=== PATIENT | female | born 1935 | race Two or more races ===

== ENCOUNTER 2018-06-25 19:00 | Inpatient (IN) | payer MEDICARE ==
[~2018-06-25] VITALS: Ht 177.8 cm; Wt 72.6 kg
[~2018-06-25 19:00] MED LIST: ASPI-482 PO; ATOR10TA PO; CITA20TA9 PO; CLOP75TA PO; GABA300C18 PO; LIPITOR80 MG PO; LUBI8CAP4 PO; METO10TA81 PO; METO25TA4 PO; OMEG1CAP2 PO; Vancomycin Hcl PO
[2018-06-25] MEDS ORDERED: LIDOCAINE 1%/EPI 1:100,000 20 ML VIAL. INJ ONE (19:15)
[2018-06-25] MEDS ORDERED: fentaNYL PF VIAL 100 MCG/2 ML VIAL IV ONE (19:15)
--- NOTE | 2018-06-25 19:36 | PHYS DOC ---
Past Medical History Past Medical History: CVA, Depression, GERD, High Cholesterol, NV, Renal Disease, UTI Additional Past Medical Histor: orthostatic hypotension, tardive dyskinesia Past Surgical History: Hysterectomy, Pacemaker Additional Past Surgical Histo: 2 STENT PLACEMENTS Alcohol Use: None Drug Use: None Adult General Chief Complaint Chief Complaint: MECHANICAL FALL HPI HPI 83-year-old female presents to ER via EMS from her family's residence following a fall. She reports she has no recollection as to cause of her fall. EMS reported patient fell down [address]. On arrival patient has bleeding from posterior head and obvious deformity left mid shaft upper arm. Prior to arrival patient EMS administered fentanyl 100 mcg IV. She reports she continues to have same pain with minimal relief. Patient was placed in c-collar by EMS. Patient's only complaint on arrival is left arm pain. Patient is on a daily blood thinner but is uncertain as to her medications. Review of Systems Review of Systems Constitutional: Reports uncertain if she had LOC Eyes: Denies change in visual acuity or eye pain [] HENT: Denies nosebleed/facial pain Respiratory: Denies shortness of breath [] Cardiovascular: Denies CP GI: Denies incontinence Musculoskeletal: Denies back/neck pain. Reports lt upper/mid arm pain Integument: Denies rash or skin lesions [] Neurologic: Denies headache, focal weakness or sensory changes. Denies dizziness All other systems were reviewed and found to be within normal limits, except as documented in this note. Current Medications Current Medications Current Medications Medications (Trade) Dose Ordered Sig/Servando Start Time Stop Time Status Last Admin Dose Admin Fentanyl Citrate (Fentanyl 2ml Vial) 50 mcg 1X ONCE 06/25/18 19:15 06/25/18 19:16 DC 06/25/18 19:29 50 MCG Lidocaine/ Epinephrine (LIDOCAINE 1%-EPI 1:100,000 Multi-Dose) 20 ml 1X ONCE 06/25/18 19:15 06/25/18 19:16 DC 06/25/18 20:00 20 ML Morphine Sulfate (Morphine Sulfate) 4 mg STK-MED ONCE 06/25/18 20:33 06/25/18 20:36 DC Allergies Allergies Allergies Coded Allergies Type Severity Reaction Last Updated Verified povidone-iodine Allergy Intermediate 02/09/14 Yes metoclopramide Adverse Reaction Severe 02/09/14 Yes Physical Exam Physical Exam Constitutional: Well developed, well nourished, no acute distress, non-toxic appearance. Clear speech HENT: Normocephalic, bleeding posterior head, bilateral ears normal- no blood/ drainage bilat., oropharynx moist- no oral injury, nose normal. [] Eyes: 3mm PERRLA, EOMI- no pain with eye movements, no nystagmus, conjunctiva normal, no discharge. [] Neck: Normal range of motion, CCollar on at time of arrival to ER placed by EMS - w/CSpine precautions cervical/neck exam complete- trachea midline- no crepitus or palp. deformity midline cspine. Pt denies tenderness on palp. of neck/Cspine. Supple, no stridor. With pt having posterior head injury and lt arm injury CCollar left on until CT obtained[] Cardiovascular: Heart rate regular rhythm, no murmur [] Lungs & Thorax: Bilateral breath sounds clear to auscultation. Resp. equal/ nonlabored. No chest wall tenderness/injury/deformity. Lt subclav. pacemaker Abdomen: Bowel sounds normal, soft- no distention/rigidity, no tenderness, no masses Skin: Warm, dry Back: With CSpine precautions maintained and 4 person assist- no visible injury - no midline spinal tenderness/palp. deformity. No CVA tenderness. [] Extremities: Pelvis stable/nontender. Full ROM of bilat. LEs without tenderness on palp. 2+ dorsalis pedis/posterior tibial bilat. Lt shoulder nontender with no palp deformity- tender on palp. of mid shaft upper lt arm with obvious deformity- no open wounds- lt posterior elbow tenderness on palp. w/ecchymosis and abrasion- decreased ROM of lt shoulder/elbow w/pt reporting increased pain with movements. Lt wrist/hand nontender with full ROM. Cap refill brisk. 2+ radial bilat. No cyanosis, no clubbing, ROM intact, no edema. [] Neurologic: Alert and oriented X 3, normal motor function, normal sensory function, no focal deficits noted. [] Psychologic: Affect normal, judgement normal, mood normal. [] Current Patient Data Vital Signs Vital Signs Date Time Temp Pulse Resp B/P (MAP) Pulse Ox O2 Delivery O2 Flow Rate FiO2 06/25/18 21:30 86 28 100 06/25/18 20:38 Nasal Cannula 2.0 06/25/18 19:16 98.3 185/95 (125) 98.3 Lab Values Laboratory Tests Test 06/25/18 20:15 White Blood Count 10.0 x10^3/uL (4.0-11.0) Red Blood Count 3.98 x10^6/uL (3.50-5.40) Hemoglobin 12.4 g/dL (12.0-15.5) Hematocrit 37.5 % (36.0-47.0) Mean Corpuscular Volume 94 fL (79-100) Mean Corpuscular Hemoglobin 31 pg (25-35) Mean Corpuscular Hemoglobin Concent 33 g/dL (31-37) Red Cell Distribution Width 13.1 % (11.5-14.5) Platelet Count 204 x10^3/uL (140-400) Neutrophils (%) (Auto) 64 % (31-73) Lymphocytes (%) (Auto) 26 % (24-48) Monocytes (%) (Auto) 8 % (0-9) Eosinophils (%) (Auto) 1 % (0-3) Basophils (%) (Auto) 1 % (0-3) Neutrophils # (Auto) 6.5 x10^3uL (1.8-7.7) Lymphocytes # (Auto) 2.6 x10^3/uL (1.0-4.8) Monocytes # (Auto) 0.8 x10^3/uL (0.0-1.1) Eosinophils # (Auto) 0.1 x10^3/uL (0.0-0.7) Basophils # (Auto) 0.1 x10^3/uL (0.0-0.2) Prothrombin Time 13.4 SEC (11.7-14.0) Prothrombin Time INR 1.1 (0.8-1.1) PTT 25 SEC (24-38) Sodium Level 140 mmol/L (136-145) Potassium Level 4.0 mmol/L (3.5-5.1) Chloride Level 103 mmol/L (98-107) Carbon Dioxide Level 25 mmol/L (21-32) Anion Gap 12 (6-14) Blood Urea Nitrogen 29 mg/dL (7-20) H Creatinine 1.2 mg/dL (0.6-1.0) H Estimated GFR (Cockcroft-Gault) 42.7 BUN/Creatinine Ratio 24 (6-20) H Glucose Level 183 mg/dL (70-99) H Calcium Level 9.0 mg/dL (8.5-10.1) Total Bilirubin 0.5 mg/dL (0.2-1.0) Aspartate Amino Transferase (AST) 22 U/L (15-37) Alanine Aminotransferase (ALT) 18 U/L (14-59) Alkaline Phosphatase 141 U/L (46-116) H Troponin I Quantitative < 0.017 ng/mL (0.000-0.055) Total Protein 7.3 g/dL (6.4-8.2) Albumin 3.0 g/dL (3.4-5.0) L Albumin/Globulin Ratio 0.7 (1.0-1.7) L Laboratory Tests 06/25/18 20:15 Laboratory Tests 06/25/18 20:15 EKG EKG EKG obtained 06/25/18 at [address] Rockwell Sinus rhythm Ltward axis Rate 77 No STEMI Radiology/Procedures Radiology/Procedures Laceration Repair by il: 230 Anesthesia: 1% lidocaine w/ epi locally Location: Posterior mid scalp Foreign body: None detected after copious irrigation and exploration Technique: 6 simran with wound edges well approximated Complexity: No subcutaneous sutures/mucosal repair/edge excision Post Closure Length: 7 cm Patient's bleeding was easily controlled in the department and there is no indication of anemia. No evidence of compartment syndrome, neurologic injury, vascular injury, open joint, tendon laceration, or foreign body. Patient is appropriate for outpatient follow up. 48 hour wound check. Scar minimization instructions given. PROCEDURE: CT HEAD AND CERVICAL SPINE WO CT head without contrast and CT cervical spine without contrast dated 06/25/2018. Comparison made to 05/08/2015. CLINICAL INDICATION: Pain after fall. TECHNIQUE: Contiguous axial imaging the head was performed from skull base to vertex. In addition, axial imaging of the cervical spine acquired with thin cut coronal and sagittal reconstruction. One or more of the following individualized dose reduction techniques were utilized for this examination: 1. Automated exposure control 2. Adjustment of the mA and/or kV according to patient size 3. Use of iterative reconstruction technique FINDINGS: Ventricles and sulci are mildly prominent for age. No midline shift or mass effect. Mild patchy low density in the deep/subcortical periventricular white matter. No hemorrhage or extra-axial collection. Posterior fossa and brainstem unremarkable. There is a focal scalp hematoma posteriorly near the midline. No underlying fracture. Moderate mucosal thickening of the right maxillary sinus. Paranasal sinuses and mastoid air cells are otherwise clear. Images of the cervical spine were acquired from skull base to mid T3. Slight retrolisthesis of C5 on C6. Sagittal alignment is otherwise anatomic. Vertebral body heights are maintained. No prevertebral soft tissue swelling. Posterior elements are intact. Moderate endplate hypertrophic changes throughout with multilevel disc space narrowing and uncovertebral spurring. Mild to moderate multilevel facet arthropathy. There is resultant moderate right foraminal stenosis at C4-C5, C5-C6 and C6-C7. No significant central canal compromise. Milder foraminal narrowing at the remaining levels. Visualized soft tissue structures are unremarkable. Limited images of the lung apices are clear. IMPRESSION HEAD: 1. No evidence of acute intracranial hemorrhage or mass. 2. Mild chronic small vessel ischemic changes and atrophy. 3. Prominent scalp hematoma posteriorly with no underlying fracture. Impression cervical spine: 1. No evidence of fracture or malalignment. 2. Moderate multilevel spondylosis. Electronically signed by: Feliciano Oscar MD (06/25/2018 10:08 PM) [place] [id number] DICTATED and SIGNED BY: FELICIANO OSCAR MD DATE: 06/25/182201 PROCEDURE: HUMERUS LEFT 2 views left humerus and 3 views left elbow dated 06/25/2018. No comparison available. CLINICAL INDICATION: Pain after fall. FINDINGS: 2 views left humerus show a complete fracture at the humeral midshaft with one shaft width lateral displacement. Proximal humeral shaft is intact. 3 views of left elbow show a transverse fracture through the supracondylar left humerus, mildly displaced. There is also a fracture line extending to the articular surface at the intercondylar region with mild impaction and mild anterior displacement of the condylar fragments relative to the humeral shaft. Fat pad elevation suggesting joint effusion. The proximal radius and ulna is grossly intact, although there may be a small avulsion or chip fracture off the olecranon. IMPRESSION: 1. Transverse fracture at the humeral midshaft with one shaft width lateral displacement. 2. Complex T-shaped bicondylar fracture of the distal humerus with mild displacement. 3. Elbow joint effusion. Electronically signed by: Feliciano Oscar MD (06/25/2018 8:23 PM) [place] [id number] DICTATED and SIGNED BY: FELICIANO OSCAR MD DATE: 06/25/182019 PROCEDURE: CHEST AP ONLY Single view chest dated 06/25/2018. Comparison made to 05/08/2015. CLINICAL INDICATION: Pain after fall today. FINDINGS: Single supine portable exam performed. Heart and mediastinal contours are stable. Dual lead left subclavian pacer in place, unchanged. Lungs are somewhat hyperinflated but otherwise clear. No consolidation or pleural effusion. No pneumothorax. Prominent linear bands of increased density at the left base, likely scar or atelectasis, unchanged. IMPRESSION: No acute radiographic abnormality. Stable findings compared to 05/08/2015. Electronically signed by: Feliciano Oscar MD (06/25/2018 8:20 PM) [place] [id number] DICTATED and SIGNED BY: FELICIANO OSCAR MD DATE: 06/25/182018 PROCEDURE: CT THORACIC SPINE WO CONTRAST EXAM: CT thoracic spine CLINICAL HISTORY: FALL COMPARISON: Chest radiograph 07/03/2016. TECHNIQUE: This CT study consists of contiguous axial images performed through the Thoracic spine. Sagittal and coronal reformatted images were also performed. FINDINGS: Mild exaggeration of the normal thoracic kyphosis. Minimal height loss of T9 and T7 possibly physiologic wedging. Approximately 50 percent height loss of the L1 vertebral body is likely unchanged when compared to prior chest radiograph 07/03/2016. Diffusely decreased bone mineral density. Mild multilevel intervertebral disc height loss. Mild rightward curvature of the lumbar spine. No definite high-grade central canal stenosis or neural foraminal narrowing is identified. A 7 mm right upper lobe lung nodule is seen (image 37). Linear opacities in the lung bases likely scarring/atelectasis. In addition a background of interstitial prominence, likely from chronic interstitial disease. Heart is mildly enlarged. Coronary artery calcifications are seen. Ascending aorta measures 3.9 cm at the level of the right pulmonary artery. IMPRESSION: 1. No evidence of acute fracture or subluxation 2. Chronic appearing height loss of the L1 vertebral body. 3. Diffusely decreased bone mineral density. 4. 7 mm right upper lobe lung nodule seen. Electronically signed by: James Coffman MD (06/25/2018 10:06 PM) [facility] DICTATED and SIGNED BY: JAMES COFFMAN MD DATE: 06/25/182157 Course & Med Decision Making Course & Med Decision Making Pertinent Labs and Imaging studies reviewed. (See chart for details) Family arrived and provided additional information on patient and the fall. Patient's daughter states patient typically walks with a walker as she has episodes of dizziness. Patient's daughter states they were downstairs and patient had lost her balance causing her to fall. She adds that patient reached out during the fall falling onto her left side and backwards onto the tile floor. Family denies patient had loss of consciousness, confusion, or change in mental status. Dgtr reports pt to be on Plavix daily. 2004: X-ray left humerus shows obvious displaced fracture along with left elbow fracture. Call placed to Dr. Delatorre, [facility]. 2019: Spoke with Dr. Delatorre, orthopedics via phone and discussed patient's case- will place patient in long arm posterior splint and keep patient nothing by mouth after midnight. Will consult his services with admit orders. 2199: Spoke with Dr. Finney, hospitalist and discussed pt's case and admission plan. 2219: This provider removed CCollar as CSpine CT results neg. for acute findings - degenerative changes reported- head CT neg. for acute findings also. Pt remains A&Ox3 and reports pain in lt arm improved with splint application. She has brisk cap refill in lt fingers- able to move all fingers with good sensation. Discussed test results with pt and her family who remain at bedside. EKG with no acute STEMI/ST elevation and troponin was <0.017- other labs stable with H&H 12.4/37.5. Discussed admit plans all agreeable with plan. [place] Disclaimer Dragon Disclaimer This electronic medical record was generated, in whole or in part, using a voice recognition dictation system. Departure Departure Impression: Primary Impression: Fall Additional Impressions: Head injury Left humeral fracture Left elbow fracture Disposition: ADMITTED INPATIENT Admitting Physician: Jose Finney Condition: STABLE Referrals: TOOTIE SANDY DO (PCP) Problem Qualifiers JENNYFER VALADEZ APRN Jun 25, 2018 19:36
--- NOTE | 2018-06-25 20:24 | RAD ---
Single view chest dated 06/25/2018. Comparison made to 05/08/2015. CLINICAL INDICATION: Pain after fall today. FINDINGS: Single supine portable exam performed. Heart and mediastinal contours are stable. Dual lead left subclavian pacer in place, unchanged. Lungs are somewhat hyperinflated but otherwise clear. No consolidation or pleural effusion. No pneumothorax. Prominent linear bands of increased density at the left base, likely scar or atelectasis, unchanged. IMPRESSION: No acute radiographic abnormality. Stable findings compared to 05/08/2015. Electronically signed by: Feliciano Oscar MD (06/25/2018 8:20 PM) [facility]
[2018-06-25 20:27] LABS: BASO # 0.1 x10^3/uL (0.0-0.2); BASO % 1 % (0-3); EOS # 0.1 x10^3/uL (0.0-0.7); EOS % 1 % (0-3); HEMATOCRIT 37.5 % (36.0-47.0); HEMOGLOBIN 12.4 g/dL (12.0-15.5); LYMPH # 2.6 x10^3/uL (1.0-4.8); LYMPH % 26 % (24-48); MEAN CORPUSCULAR HEMOGLOBIN 31 pg (25-35); MEAN CORPUSCULAR HGB CONC 33 g/dL (31-37); MEAN CORPUSCULAR VOLUME 94 fL (79-100); MONO # 0.8 x10^3/uL (0.0-1.1); MONO % 8 % (0-9); NEUT # 6.5 x10^3uL (1.8-7.7); NEUT % 64 % (31-73); PLATELET COUNT 204 x10^3/uL (140-400); RED BLOOD COUNT 3.98 x10^6/uL (3.50-5.40); RED CELL DISTRIBUTION WIDTH 13.1 % (11.5-14.5)
--- NOTE | 2018-06-25 20:28 | RAD ---
2 views left humerus and 3 views left elbow dated 06/25/2018. No comparison available. CLINICAL INDICATION: Pain after fall. FINDINGS: 2 views left humerus show a complete fracture at the humeral midshaft with one shaft width lateral displacement. Proximal humeral shaft is intact. 3 views of left elbow show a transverse fracture through the supracondylar left humerus, mildly displaced. There is also a fracture line extending to the articular surface at the intercondylar region with mild impaction and mild anterior displacement of the condylar fragments relative to the humeral shaft. Fat pad elevation suggesting joint effusion. The proximal radius and ulna is grossly intact, although there may be a small avulsion or chip fracture off the olecranon. IMPRESSION: 1. Transverse fracture at the humeral midshaft with one shaft width lateral displacement. 2. Complex T-shaped bicondylar fracture of the distal humerus with mild displacement. 3. Elbow joint effusion. Electronically signed by: Feliciano Oscar MD (06/25/2018 8:23 PM) [facility]
[2018-06-25] MEDS ORDERED: MORPHINE SULFATE 4 MG/ML VIAL. ONE (20:33)
[2018-06-25 20:36] LABS: CREATININE 1.2 mg/dL (0.6-1.0); GFR 42.7; PROTHROMBIN TIME PATIENT 13.4 SEC (11.7-14.0)
[2018-06-25 20:44] LABS: ALBUMIN/GLOBULIN RATIO 0.7 (1.0-1.7); TOTAL BILIRUBIN 0.5 mg/dL (0.2-1.0); TOTAL PROTEIN 7.3 g/dL (6.4-8.2)
[2018-06-25] MEDS ORDERED: MORPHINE SULFATE 4 MG/ML VIAL. IV ONE (20:45)
--- NOTE | 2018-06-25 22:11 | RAD ---
EXAM: CT thoracic spine CLINICAL HISTORY: FALL COMPARISON: Chest radiograph 07/03/2016. TECHNIQUE: This CT study consists of contiguous axial images performed through the Thoracic spine. Sagittal and coronal reformatted images were also performed. FINDINGS: Mild exaggeration of the normal thoracic kyphosis. Minimal height loss of T9 and T7 possibly physiologic wedging. Approximately 50 percent height loss of the L1 vertebral body is likely unchanged when compared to prior chest radiograph 07/03/2016. Diffusely decreased bone mineral density. Mild multilevel intervertebral disc height loss. Mild rightward curvature of the lumbar spine. No definite high-grade central canal stenosis or neural foraminal narrowing is identified. A 7 mm right upper lobe lung nodule is seen (image 37). Linear opacities in the lung bases likely scarring/atelectasis. In addition a background of interstitial prominence, likely from chronic interstitial disease. Heart is mildly enlarged. Coronary artery calcifications are seen. Ascending aorta measures 3.9 cm at the level of the right pulmonary artery. IMPRESSION: 1. No evidence of acute fracture or subluxation 2. Chronic appearing height loss of the L1 vertebral body. 3. Diffusely decreased bone mineral density. 4. 7 mm right upper lobe lung nodule seen. Electronically signed by: James Tang MD (06/25/2018 10:06 PM) [facility]
--- NOTE | 2018-06-25 22:13 | RAD ---
CT head without contrast and CT cervical spine without contrast dated 06/25/2018. Comparison made to 05/08/2015. CLINICAL INDICATION: Pain after fall. TECHNIQUE: Contiguous axial imaging the head was performed from skull base to vertex. In addition, axial imaging of the cervical spine acquired with thin cut coronal and sagittal reconstruction. One or more of the following individualized dose reduction techniques were utilized for this examination: 1. Automated exposure control 2. Adjustment of the mA and/or kV according to patient size 3. Use of iterative reconstruction technique FINDINGS: Ventricles and sulci are mildly prominent for age. No midline shift or mass effect. Mild patchy low density in the deep/subcortical periventricular white matter. No hemorrhage or extra-axial collection. Posterior fossa and brainstem unremarkable. There is a focal scalp hematoma posteriorly near the midline. No underlying fracture. Moderate mucosal thickening of the right maxillary sinus. Paranasal sinuses and mastoid air cells are otherwise clear. Images of the cervical spine were acquired from skull base to mid T3. Slight retrolisthesis of C5 on C6. Sagittal alignment is otherwise anatomic. Vertebral body heights are maintained. No prevertebral soft tissue swelling. Posterior elements are intact. Moderate endplate hypertrophic changes throughout with multilevel disc space narrowing and uncovertebral spurring. Mild to moderate multilevel facet arthropathy. There is resultant moderate right foraminal stenosis at C4-C5, C5-C6 and C6-C7. No significant central canal compromise. Milder foraminal narrowing at the remaining levels. Visualized soft tissue structures are unremarkable. Limited images of the lung apices are clear. IMPRESSION HEAD: 1. No evidence of acute intracranial hemorrhage or mass. 2. Mild chronic small vessel ischemic changes and atrophy. 3. Prominent scalp hematoma posteriorly with no underlying fracture. Impression cervical spine: 1. No evidence of fracture or malalignment. 2. Moderate multilevel spondylosis. Electronically signed by: Feliciano Oscar MD (06/25/2018 10:08 PM) [facility]
[2018-06-25] MEDS ORDERED: MORPHINE SULFATE 4 MG/ML VIAL. IV PRN (23:45)
[2018-06-25] MEDS ORDERED: ONDANSETRON PF 4 MG/2 ML VIAL. IV PRN (23:45)
[2018-06-26 00:15] VITALS: BP 105/57
[2018-06-26] MEDS: IV NORMAL SALINE 1000ML BAG 1,000 ML IV SCH ×2 (00:55→09:44)
[2018-06-26] MEDS ORDERED: C.DIFF MED SCREEN BY RX. MC ONE (01:00)
[2018-06-26] MEDS ORDERED: DIPHTH,PERTUSS(ACELL),TET TOX 0.5 ML DISP.SYRIN. VAX IM ONE (01:00)
[2018-06-26 03:00] VITALS: BP 101/67
[2018-06-26 06:26] LABS: BASO % 0 % (0-3); EOS % 0 % (0-3); HEMATOCRIT 36.4 % (36.0-47.0); HEMOGLOBIN 11.9 g/dL (12.0-15.5); LYMPH # 1.5 x10^3/uL (1.0-4.8); LYMPH % 18 % (24-48); MEAN CORPUSCULAR HEMOGLOBIN 31 pg (25-35); MEAN CORPUSCULAR HGB CONC 33 g/dL (31-37); MEAN CORPUSCULAR VOLUME 95 fL (79-100); MONO # 0.9 x10^3/uL (0.0-1.1); MONO % 11 % (0-9); NEUT # 5.9 x10^3uL (1.8-7.7); NEUT % 72 % (31-73); PLATELET COUNT 177 x10^3/uL (140-400); RED BLOOD COUNT 3.82 x10^6/uL (3.50-5.40); RED CELL DISTRIBUTION WIDTH 13.2 % (11.5-14.5); WHITE BLOOD COUNT 8.3 x10^3/uL (4.0-11.0)
[2018-06-26 06:32] LABS: CALCIUM 8.9 mg/dL (8.5-10.1); CREATININE 1.6 mg/dL (0.6-1.0); GFR 30.6; POTASSIUM 5.1 mmol/L (3.5-5.1)
--- NOTE | 2018-06-26 07:46 | EKG ---
[facility] [address] [place] [address] Test Date: 2018-06-25 Test Time: 19:21:01 Pat Name: RAYMUNDO SEXTON Department: Room: [facility] Gender: F Recording Engineer: : [id number] Requested By: JENNYFER VALADEZ Order Number: [id number] Reading MD: Saurabh Barton Measurements Intervals [place] Rate: 76 P: -90 [place]: 184 QRS: -26 QRSD: 78 T: 34 QT: 408 QTc: 463 Interpretive Statements A PACED NONSPECIFIC ST-T WAVE CHANGES. Electronically Signed On 06-27-2018 10:06:27 SCRAPPER by Saurabh Barton
[2018-06-26 07:56] VITALS: BP 107/52
--- NOTE | 2018-06-26 09:57 | PDOC1 ---
History and Physical Date of Admission Date of Admission DATE: 06/26/18 TIME: 09:55 Identification/Chief Complaint Chief Complaint ER via EMS from her family's residence following a fall. She reports she has no recollection as to cause of her fall. EMS reported patient fell down [address]. On ER arrival patient has bleeding from posterior head and obvious deformity left mid shaft upper arm. Prior to arrival patient was administered fentanyl 100 mcg IV. She reports she continues to have same pain with SOME relief. Patient was placed in c-collar by EMS. Patient's only complaint on arrival is left arm pain, , patient states her family told her not to try to go to her basement fx is complex planning transfer to [facility] Past Medical History Past Medical History Past Medical History Past Medical History: CVA, Depression, GERD, High Cholesterol, CT, Renal Disease, UTI Additional Past Medical Histor: orthostatic hypotension, tardive dyskinesia Past Surgical History: Hysterectomy, Pacemaker Additional Past Surgical Histo: 2 STENT PLACEMENTS Alcohol Use: None Drug Use: None family hx Hyperlipidemia Cardiovascular: CAD, HTN Psych: Anxiety, Depression Renal/: Chronic renal failure Family History Family History: Other Social History Smoke: No ALCOHOL: none Drugs: None, Other Current Problem List Problem List Problems Medical Problems: (1) Left elbow fracture Status: Acute (2) Left humeral fracture Status: Acute Current Medications Current Medications Current Medications Fentanyl Citrate (Fentanyl 2ml Vial) 50 mcg 1X ONCE IV Last administered on 06/25/18at 19:29; Start 06/25/18 at 19:15; Stop 06/25/18 at 19:16; Status DC Lidocaine/ Epinephrine (LIDOCAINE 1%-EPI 1:100,000 Multi-Dose) 20 ml 1X ONCE INJ Last administered on 06/25/18at 20:00; Start 06/25/18 at 19:15; Stop 06/25/18 at 19:16; Status DC Morphine Sulfate (Morphine Sulfate) 4 mg 1X ONCE IV Last administered on at 20:38; Start 06/25/18 at 20:45; Stop 06/25/18 at 20:46; Status DC Morphine Sulfate (Morphine Sulfate) 4 mg STK-MED ONCE .ROUTE ; Start 06/25/18 at 20:33; Stop 06/25/18 at 20:36; Status DC Ondansetron HCl (Zofran) 4 mg PRN Q8HRS PRN IV NAUSEA/VOMITING 1ST CHOICE; Start 06/25/18 at 23:45; Stop 06/26/18 at 23:44 Morphine Sulfate (Morphine Sulfate) 4 mg PRN Q2HR PRN IV SEVERE PAIN; Start 06/25/18 at 23:45; Stop 06/26/18 at 23:44 Sodium Chloride 1,000 ml @ 100 mls/hr Q10H IV Last administered on 06/26/18at 09 :44; Start 06/25/18 at 23:45 Diphtheria/ Tetanus/Acell Pertussis (Boostrix) 0.5 ml ONCE ONCE VAX IM Last administered on 06/26/18at 04:07; Start 06/26/18 at 01:00; Stop 06/26/18 at 01:01; Status DC Pharmacy Consult (C.diff Med Screen By Rx) 1 each 1X ONCE [facility] ; Start 06/26/18 at 01:00; Stop 06/26/18 at 01:01; Status DC Active Scripts Active Reported Amitiza (Lubiprostone) 8 Mcg Capsule 8 Mcg PO BID Lovaza ([place]-3 Acid Ethyl Esters) 1 Gm Capsule 1 Gm PO BID Clopidogrel (Clopidogrel Bisulfate) 75 Mg Tablet 75 Mg PO Celexa (Citalopram Hydrobromide) 20 Mg Tablet 20 Mg PO Aspir 81 (Aspirin) 81 Mg Tablet.dr 81 Mg PO Lipitor (Atorvastatin Calcium) 10 Mg Tablet 40 Mg PO Allergies Allergies: Coded Allergies: povidone-iodine (Verified Allergy, Intermediate, 02/09/14) sulfamethoxazole (Verified Allergy, Intermediate, 06/26/18) Reported by daughter trimethoprim (Verified Allergy, Intermediate, 06/26/18) Reported by daughter metoclopramide (Verified Adverse Reaction, Severe, 02/09/14) tardive dyskinesia ROS Review of System Review of Systems Review of Systems Constitutional: Reports uncertain if she had LOC Eyes: Denies change in visual acuity or eye pain [] HENT: Denies nosebleed/facial pain Respiratory: Denies shortness of breath [] Cardiovascular: Denies CP GI: Denies incontinence Musculoskeletal: Denies back/neck pain. Reports lt upper/mid arm pain Integument: Denies rash or skin lesions [] Neurologic: Denies headache, focal weakness or sensory changes. Denies dizziness 14 pt systems were reviewed and found to be within normal limits, except as documented HEENT: No: Heacaches, Visual Changes, Hearing change, Nasal congestion, Nasal discharge, Oral lesions, Sinus pain, Sore Throat, Epistaxis, Sneezing, Snoring, Tinnitus, Vertigo, Vocal changes, Other ENDOCRINE: No: Breast Changes, Galactorrhea, Hair Pattern Changes, Hot Flashes , Malaise/lethargy, Mood Swings, Palpitations, Polydipsia/polyuria, Skin Changes , Temperature Intolerance, Unexpected Weight Changes, Other Respiratory: No: Cough, Hemoptysis, Orthopnea, Pleuritic Pain, Shortness of breath, SOB with excertion, Sputum Changes, Stridor, Tachypnea, Wheezing, Other Gastrointestinal: No Nausea, No Vomiting, No Abdominal Pain, No Diarrhea, No Constipation, No Melena, No Hematochezia, No Other Neurological: Yes Gait Disturbance Physical Exam Physical Exam Physical Exam Physical Exam Constitutional: Well developed, well nourished, no acute distress, non-toxic appearance. Clear speech HENT: Normocephalic, bleeding posterior head, bilateral ears normal, oropharynx moist- no oral injury, nose normal. [] Eyes: 3mm PERRLA, EOMI- no pain with eye movements, no nystagmus, conjunctiva normal, no discharge. [] Neck: Normal range of motion, trachea midline- no crepitus or palp. deformity midline cspine. Pt denies tenderness on palp. of neck/Cspine. Supple, no stridor. With pt having posterior head injury and lt arm injury CCollar left on until CT obtained[] Cardiovascular: Heart rate regular rhythm, no murmur [] Lungs & Thorax: Bilateral breath sounds clear to auscultation. Resp. equal/ nonlabored. No chest wall tenderness/injury/deformity. Lt subclav. pacemaker Abdomen: Bowel sounds normal, soft- no distention/rigidity, no tenderness, no masses Skin: Warm, dry Back: With CSpine precautions maintained and 4 person assist- no visible injury - no midline spinal tenderness/palp. deformity. No CVA tenderness. [] Extremities: Pelvis stable/nontender. Full ROM of bilat. LEs without tenderness on palp. 2+ dorsalis pedis/posterior tibial bilat. Lt shoulder nontender with no palp deformity- tender on palp. of mid shaft upper lt arm with obvious deformity- no open wounds- lt posterior elbow tenderness on palp. w/ecchymosis and abrasion- decreased ROM of lt shoulder/elbow w/pt reporting increased pain with movements. Lt wrist/hand nontender with full ROM. Cap refill brisk. 2+ radial bilat. No cyanosis, no clubbing, ROM intact, no edema. [] Neurologic: Alert and oriented X 3, normal motor function, normal sensory function, no focal deficits noted. [] Psychologic: Affect normal, judgement normal, mood normal. [] General: Alert, Oriented X3, Cooperative Lungs: Clear to auscultation Heart: no thrills Breasts: Not examined Rectal Exam: not examined PELVIC: Examination not indicated Psych/Mental Status: Mental status NL, Mood NL Vitals Vitals Vital Signs Date Time Temp Pulse Resp B/P (MAP) Pulse Ox O2 Delivery O2 Flow Rate FiO2 06/26/18 07:56 98.4 70 18 107/52 (70) 94 Room Air 98.4 06/25/18 20:38 2.0 Labs Labs Laboratory Tests Test 06/25/18 20:15 06/25/18 23:59 06/26/18 04:50 06/26/18 08:02 White Blood Count 10.0 x10^3/uL (4.0-11.0) 8.3 x10^3/uL (4.0-11.0) Red Blood Count 3.98 x10^6/uL (3.50-5.40) 3.82 x10^6/uL (3.50-5.40) Hemoglobin 12.4 g/dL (12.0-15.5) 11.9 g/dL (12.0-15.5) Hematocrit 37.5 % (36.0-47.0) 36.4 % (36.0-47.0) Mean Corpuscular Volume 94 fL (79-100) 95 fL (79-100) Mean Corpuscular Hemoglobin 31 pg (25-35) 31 pg (25-35) Mean Corpuscular Hemoglobin Concent 33 g/dL (31-37) 33 g/dL (31-37) Red Cell Distribution Width 13.1 % (11.5-14.5) 13.2 % (11.5-14.5) Platelet Count 204 x10^3/uL (140-400) 177 x10^3/uL (140-400) Neutrophils (%) (Auto) 64 % (31-73) 72 % (31-73) Lymphocytes (%) (Auto) 26 % (24-48) 18 % (24-48) Monocytes (%) (Auto) 8 % (0-9) 11 % (0-9) Eosinophils (%) (Auto) 1 % (0-3) 0 % (0-3) Basophils (%) (Auto) 1 % (0-3) 0 % (0-3) Neutrophils # (Auto) 6.5 x10^3uL (1.8-7.7) 5.9 x10^3uL (1.8-7.7) Lymphocytes # (Auto) 2.6 x10^3/uL (1.0-4.8) 1.5 x10^3/uL (1.0-4.8) Monocytes # (Auto) 0.8 x10^3/uL (0.0-1.1) 0.9 x10^3/uL (0.0-1.1) Eosinophils # (Auto) 0.1 x10^3/uL (0.0-0.7) 0.0 x10^3/uL (0.0-0.7) Basophils # (Auto) 0.1 x10^3/uL (0.0-0.2) 0.0 x10^3/uL (0.0-0.2) Prothrombin Time 13.4 SEC (11.7-14.0) Prothromb Time International Ratio 1.1 (0.8-1.1) Activated Partial Thromboplast Time 25 SEC (24-38) Sodium Level 140 mmol/L (136-145) 141 mmol/L (136-145) Potassium Level 4.0 mmol/L (3.5-5.1) 5.1 mmol/L (3.5-5.1) Chloride Level 103 mmol/L (98-107) 105 mmol/L (98-107) Carbon Dioxide Level 25 mmol/L (21-32) 25 mmol/L (21-32) Anion Gap 12 (6-14) 11 (6-14) Blood Urea Nitrogen 29 mg/dL (7-20) 30 mg/dL (7-20) Creatinine 1.2 mg/dL (0.6-1.0) 1.6 mg/dL (0.6-1.0) Estimated GFR (Cockcroft-Gault) 42.7 30.6 BUN/Creatinine Ratio 24 (6-20) Glucose Level 183 mg/dL (70-99) 141 mg/dL (70-99) Calcium Level 9.0 mg/dL (8.5-10.1) 8.9 mg/dL (8.5-10.1) Total Bilirubin 0.5 mg/dL (0.2-1.0) Aspartate Amino Transf (AST/SGOT) 22 U/L (15-37) Alanine Aminotransferase (ALT/SGPT) 18 U/L (14-59) Alkaline Phosphatase 141 U/L (46-116) Troponin I Quantitative < 0.017 ng/mL (0.000-0.055) Total Protein 7.3 g/dL (6.4-8.2) Albumin 3.0 g/dL (3.4-5.0) Albumin/Globulin Ratio 0.7 (1.0-1.7) Glucose (Fingerstick) 183 mg/dL (70-99) 138 mg/dL (70-99) Laboratory Tests Test 06/25/18 20:15 06/25/18 23:59 06/26/18 04:50 06/26/18 08:02 White Blood Count 10.0 x10^3/uL (4.0-11.0) 8.3 x10^3/uL (4.0-11.0) Red Blood Count 3.98 x10^6/uL (3.50-5.40) 3.82 x10^6/uL (3.50-5.40) Hemoglobin 12.4 g/dL (12.0-15.5) 11.9 g/dL (12.0-15.5) Hematocrit 37.5 % (36.0-47.0) 36.4 % (36.0-47.0) Mean Corpuscular Volume 94 fL (79-100) 95 fL (79-100) Mean Corpuscular Hemoglobin 31 pg (25-35) 31 pg (25-35) Mean Corpuscular Hemoglobin Concent 33 g/dL (31-37) 33 g/dL (31-37) Red Cell Distribution Width 13.1 % (11.5-14.5) 13.2 % (11.5-14.5) Platelet Count 204 x10^3/uL (140-400) 177 x10^3/uL (140-400) Neutrophils (%) (Auto) 64 % (31-73) 72 % (31-73) Lymphocytes (%) (Auto) 26 % (24-48) 18 % (24-48) Monocytes (%) (Auto) 8 % (0-9) 11 % (0-9) Eosinophils (%) (Auto) 1 % (0-3) 0 % (0-3) Basophils (%) (Auto) 1 % (0-3) 0 % (0-3) Neutrophils # (Auto) 6.5 x10^3uL (1.8-7.7) 5.9 x10^3uL (1.8-7.7) Lymphocytes # (Auto) 2.6 x10^3/uL (1.0-4.8) 1.5 x10^3/uL (1.0-4.8) Monocytes # (Auto) 0.8 x10^3/uL (0.0-1.1) 0.9 x10^3/uL (0.0-1.1) Eosinophils # (Auto) 0.1 x10^3/uL (0.0-0.7) 0.0 x10^3/uL (0.0-0.7) Basophils # (Auto) 0.1 x10^3/uL (0.0-0.2) 0.0 x10^3/uL (0.0-0.2) Prothrombin Time 13.4 SEC (11.7-14.0) Prothromb Time International Ratio 1.1 (0.8-1.1) Activated Partial Thromboplast Time 25 SEC (24-38) Sodium Level 140 mmol/L (136-145) 141 mmol/L (136-145) Potassium Level 4.0 mmol/L (3.5-5.1) 5.1 mmol/L (3.5-5.1) Chloride Level 103 mmol/L (98-107) 105 mmol/L (98-107) Carbon Dioxide Level 25 mmol/L (21-32) 25 mmol/L (21-32) Anion Gap 12 (6-14) 11 (6-14) Blood Urea Nitrogen 29 mg/dL (7-20) 30 mg/dL (7-20) Creatinine 1.2 mg/dL (0.6-1.0) 1.6 mg/dL (0.6-1.0) Estimated GFR (Cockcroft-Gault) 42.7 30.6 BUN/Creatinine Ratio 24 (6-20) Glucose Level 183 mg/dL (70-99) 141 mg/dL (70-99) Calcium Level 9.0 mg/dL (8.5-10.1) 8.9 mg/dL (8.5-10.1) Total Bilirubin 0.5 mg/dL (0.2-1.0) Aspartate Amino Transf (AST/SGOT) 22 U/L (15-37) Alanine Aminotransferase (ALT/SGPT) 18 U/L (14-59) Alkaline Phosphatase 141 U/L (46-116) Troponin I Quantitative < 0.017 ng/mL (0.000-0.055) Total Protein 7.3 g/dL (6.4-8.2) Albumin 3.0 g/dL (3.4-5.0) Albumin/Globulin Ratio 0.7 (1.0-1.7) Glucose (Fingerstick) 183 mg/dL (70-99) 138 mg/dL (70-99) Images Images 2 views left humerus and 3 views left elbow dated 06/25/2018. No comparison available. CLINICAL INDICATION: Pain after fall. FINDINGS: 2 views left humerus show a complete fracture at the humeral midshaft with one shaft width lateral displacement. Proximal humeral shaft is intact. 3 views of left elbow show a transverse fracture through the supracondylar left humerus, mildly displaced. There is also a fracture line extending to the articular surface at the intercondylar region with mild impaction and mild anterior displacement of the condylar fragments relative to the humeral shaft. Fat pad elevation suggesting joint effusion. The proximal radius and ulna is grossly intact, although there may be a small avulsion or chip fracture off the olecranon. IMPRESSION: 1. Transverse fracture at the humeral midshaft with one shaft width lateral displacement. 2. Complex T-shaped bicondylar fracture of the distal humerus with mild displacement. 3. Elbow joint effusion. Electronically signed by: Feliciano Oscar MD (06/25/2018 8:23 PM) [facility] VTE Prophylaxis Ordered VTE Prophylaxis Devices: No VTE Pharmacological Prophylaxi: No Assessment/Plan Assessment/Plan IMPRESSION: 1. Transverse fracture at the humeral midshaft with one shaft width lateral displacement. 2. Complex T-shaped bicondylar fracture of the distal humerus with mild displacement. 3. Elbow joint effusion. 4. MECHANICAL FALL 5. hx cva, gait disturbance , chronic 6. hx orthostatic hypotension 7. depression hx PLAN ORTHO CONSULT TRANSFER [facility] FX MGT [facility], Transfer team contacted by dr Nandini elizondo plavix EMMA ALLISON MD Jun 26, 2018 09:57
--- NOTE | 2018-06-26 10:56 | PDOC2 ---
CONSULT Date of Consult Date of Consult DATE: 06/26/18 TIME: 10:45 Reason for Consult Reason for Consult: Left humerus fracture left elbow fracture Identification/Chief Complaint Chief Complaint Left arm pain Source Source: Chart review, Patient History of Present Illness Reason for Visit: This 83-year-old woman lives with her family, is right-handed, and fell down some stairs last night. She had severe arm pain and deformity and was brought to the hospital by EMS. She bumped her head, and had a scalp laceration that was taken care of in the emergency room. CT scan of the head was negative for acute injury. Her only complaint is of arm pain. The emergency room reported to me that these are closed injuries. She is on Plavix so I would expect there will be some bruising Past Medical History Past Medical History The chart says she has a history of a stroke but she denies any long-term effects. Cardiovascular: CAD, HTN Psych: Anxiety, Depression Renal/: Chronic renal failure Family History Family History: Other Social History No ALCOHOL: none Drugs: None, Other Lives: with Family Current Problem List Problem List Problems Medical Problems: (1) Left elbow fracture Status: Acute (2) Left humeral fracture Status: Acute Current Medications Current Medications Current Medications Fentanyl Citrate (Fentanyl 2ml Vial) 50 mcg 1X ONCE IV Last administered on 06/25/18at 19:29; Start 06/25/18 at 19:15; Stop 06/25/18 at 19:16; Status DC Lidocaine/ Epinephrine (LIDOCAINE 1%-EPI 1:100,000 Multi-Dose) 20 ml 1X ONCE INJ Last administered on 06/25/18at 20:00; Start 06/25/18 at 19:15; Stop 06/25/18 at 19:16; Status DC Morphine Sulfate (Morphine Sulfate) 4 mg 1X ONCE IV Last administered on at 20:38; Start 06/25/18 at 20:45; Stop 06/25/18 at 20:46; Status DC Morphine Sulfate (Morphine Sulfate) 4 mg STK-MED ONCE .ROUTE ; Start 06/25/18 at 20:33; Stop 06/25/18 at 20:36; Status DC Ondansetron HCl (Zofran) 4 mg PRN Q8HRS PRN IV NAUSEA/VOMITING 1ST CHOICE; Start 06/25/18 at 23:45; Stop 06/26/18 at 23:44 Morphine Sulfate (Morphine Sulfate) 4 mg PRN Q2HR PRN IV SEVERE PAIN; Start 06/25/18 at 23:45; Stop 06/26/18 at 23:44 Sodium Chloride 1,000 ml @ 100 mls/hr Q10H IV Last administered on 06/26/18at 09 :44; Start 06/25/18 at 23:45 Diphtheria/ Tetanus/Acell Pertussis (Boostrix) 0.5 ml ONCE ONCE VAX IM Last administered on 06/26/18at 04:07; Start 06/26/18 at 01:00; Stop 06/26/18 at 01:01; Status DC Pharmacy Consult (C.diff Med Screen By Rx) 1 each 1X ONCE MC Last administered on 06/26/18at 01:00; Start 06/26/18 at 01:00; Stop 06/26/18 at 01:01; Status DC Active Scripts Active Reported Amitiza (Lubiprostone) 8 Mcg Capsule 8 Mcg PO BID Lovaza ([place]-3 Acid Ethyl Esters) 1 Gm Capsule 1 Gm PO BID Clopidogrel (Clopidogrel Bisulfate) 75 Mg Tablet 75 Mg PO Celexa (Citalopram Hydrobromide) 20 Mg Tablet 20 Mg PO Aspir 81 (Aspirin) 81 Mg Tablet.dr 81 Mg PO Lipitor (Atorvastatin Calcium) 10 Mg Tablet 40 Mg PO Allergies Allergies: Coded Allergies: povidone-iodine (Verified Allergy, Intermediate, 02/09/14) sulfamethoxazole (Verified Allergy, Intermediate, 06/26/18) Reported by daughter trimethoprim (Verified Allergy, Intermediate, 06/26/18) Reported by daughter metoclopramide (Verified Adverse Reaction, Severe, 02/09/14) tardive dyskinesia ROS General: No: Chills, Night Sweats Hematological and Lymphatic: YES: Brusing Musculoskeletal: Yes Joint Pain Physical Exam General: Alert, Cooperative, Other (scalp laceration and minor abrasions. No focal deficits.) HEENT: EOMI, Mucous membr. moist/pink Lungs: Normal air movement Heart: Regular rate Abdomen: Soft Extremities: Other (the left arm is in a splint and appears normally aligned at this time. Capillary refill of the fingertips is normal. Active and passive range of motion of the finger shows no evidence of compartment syndrome, and no focal deficits of the radial ulnar median nerves. Light touch sensation intact at the fingers.) Skin: No breakdown, No significant lesion Neuro: Normal speech, Sensation intact Psych/Mental Status: Mental status NL, Mood NL MUSCULOSKELETAL: Abnormal exam of left (elbow and humerus as above) Vitals VITALS Vital Signs Date Time Temp Pulse Resp B/P (MAP) Pulse Ox O2 Delivery O2 Flow Rate FiO2 06/26/18 07:56 98.4 70 18 107/52 (70) 94 Room Air 98.4 06/25/18 20:38 2.0 Labs Labs Laboratory Tests Test 06/25/18 20:15 06/25/18 23:59 06/26/18 04:50 06/26/18 08:02 White Blood Count 10.0 x10^3/uL (4.0-11.0) 8.3 x10^3/uL (4.0-11.0) Red Blood Count 3.98 x10^6/uL (3.50-5.40) 3.82 x10^6/uL (3.50-5.40) Hemoglobin 12.4 g/dL (12.0-15.5) 11.9 g/dL (12.0-15.5) Hematocrit 37.5 % (36.0-47.0) 36.4 % (36.0-47.0) Mean Corpuscular Volume 94 fL (79-100) 95 fL (79-100) Mean Corpuscular Hemoglobin 31 pg (25-35) 31 pg (25-35) Mean Corpuscular Hemoglobin Concent 33 g/dL (31-37) 33 g/dL (31-37) Red Cell Distribution Width 13.1 % (11.5-14.5) 13.2 % (11.5-14.5) Platelet Count 204 x10^3/uL (140-400) 177 x10^3/uL (140-400) Neutrophils (%) (Auto) 64 % (31-73) 72 % (31-73) Lymphocytes (%) (Auto) 26 % (24-48) 18 % (24-48) Monocytes (%) (Auto) 8 % (0-9) 11 % (0-9) Eosinophils (%) (Auto) 1 % (0-3) 0 % (0-3) Basophils (%) (Auto) 1 % (0-3) 0 % (0-3) Neutrophils # (Auto) 6.5 x10^3uL (1.8-7.7) 5.9 x10^3uL (1.8-7.7) Lymphocytes # (Auto) 2.6 x10^3/uL (1.0-4.8) 1.5 x10^3/uL (1.0-4.8) Monocytes # (Auto) 0.8 x10^3/uL (0.0-1.1) 0.9 x10^3/uL (0.0-1.1) Eosinophils # (Auto) 0.1 x10^3/uL (0.0-0.7) 0.0 x10^3/uL (0.0-0.7) Basophils # (Auto) 0.1 x10^3/uL (0.0-0.2) 0.0 x10^3/uL (0.0-0.2) Prothrombin Time 13.4 SEC (11.7-14.0) Prothromb Time International Ratio 1.1 (0.8-1.1) Activated Partial Thromboplast Time 25 SEC (24-38) Sodium Level 140 mmol/L (136-145) 141 mmol/L (136-145) Potassium Level 4.0 mmol/L (3.5-5.1) 5.1 mmol/L (3.5-5.1) Chloride Level 103 mmol/L (98-107) 105 mmol/L (98-107) Carbon Dioxide Level 25 mmol/L (21-32) 25 mmol/L (21-32) Anion Gap 12 (6-14) 11 (6-14) Blood Urea Nitrogen 29 mg/dL (7-20) 30 mg/dL (7-20) Creatinine 1.2 mg/dL (0.6-1.0) 1.6 mg/dL (0.6-1.0) Estimated GFR (Cockcroft-Gault) 42.7 30.6 BUN/Creatinine Ratio 24 (6-20) Glucose Level 183 mg/dL (70-99) 141 mg/dL (70-99) Calcium Level 9.0 mg/dL (8.5-10.1) 8.9 mg/dL (8.5-10.1) Total Bilirubin 0.5 mg/dL (0.2-1.0) Aspartate Amino Transf (AST/SGOT) 22 U/L (15-37) Alanine Aminotransferase (ALT/SGPT) 18 U/L (14-59) Alkaline Phosphatase 141 U/L (46-116) Troponin I Quantitative < 0.017 ng/mL (0.000-0.055) Total Protein 7.3 g/dL (6.4-8.2) Albumin 3.0 g/dL (3.4-5.0) Albumin/Globulin Ratio 0.7 (1.0-1.7) Glucose (Fingerstick) 183 mg/dL (70-99) 138 mg/dL (70-99) Laboratory Tests Test 06/25/18 20:15 06/25/18 23:59 06/26/18 04:50 06/26/18 08:02 White Blood Count 10.0 x10^3/uL (4.0-11.0) 8.3 x10^3/uL (4.0-11.0) Red Blood Count 3.98 x10^6/uL (3.50-5.40) 3.82 x10^6/uL (3.50-5.40) Hemoglobin 12.4 g/dL (12.0-15.5) 11.9 g/dL (12.0-15.5) Hematocrit 37.5 % (36.0-47.0) 36.4 % (36.0-47.0) Mean Corpuscular Volume 94 fL (79-100) 95 fL (79-100) Mean Corpuscular Hemoglobin 31 pg (25-35) 31 pg (25-35) Mean Corpuscular Hemoglobin Concent 33 g/dL (31-37) 33 g/dL (31-37) Red Cell Distribution Width 13.1 % (11.5-14.5) 13.2 % (11.5-14.5) Platelet Count 204 x10^3/uL (140-400) 177 x10^3/uL (140-400) Neutrophils (%) (Auto) 64 % (31-73) 72 % (31-73) Lymphocytes (%) (Auto) 26 % (24-48) 18 % (24-48) Monocytes (%) (Auto) 8 % (0-9) 11 % (0-9) Eosinophils (%) (Auto) 1 % (0-3) 0 % (0-3) Basophils (%) (Auto) 1 % (0-3) 0 % (0-3) Neutrophils # (Auto) 6.5 x10^3uL (1.8-7.7) 5.9 x10^3uL (1.8-7.7) Lymphocytes # (Auto) 2.6 x10^3/uL (1.0-4.8) 1.5 x10^3/uL (1.0-4.8) Monocytes # (Auto) 0.8 x10^3/uL (0.0-1.1) 0.9 x10^3/uL (0.0-1.1) Eosinophils # (Auto) 0.1 x10^3/uL (0.0-0.7) 0.0 x10^3/uL (0.0-0.7) Basophils # (Auto) 0.1 x10^3/uL (0.0-0.2) 0.0 x10^3/uL (0.0-0.2) Prothrombin Time 13.4 SEC (11.7-14.0) Prothromb Time International Ratio 1.1 (0.8-1.1) Activated Partial Thromboplast Time 25 SEC (24-38) Sodium Level 140 mmol/L (136-145) 141 mmol/L (136-145) Potassium Level 4.0 mmol/L (3.5-5.1) 5.1 mmol/L (3.5-5.1) Chloride Level 103 mmol/L (98-107) 105 mmol/L (98-107) Carbon Dioxide Level 25 mmol/L (21-32) 25 mmol/L (21-32) Anion Gap 12 (6-14) 11 (6-14) Blood Urea Nitrogen 29 mg/dL (7-20) 30 mg/dL (7-20) Creatinine 1.2 mg/dL (0.6-1.0) 1.6 mg/dL (0.6-1.0) Estimated GFR (Cockcroft-Gault) 42.7 30.6 BUN/Creatinine Ratio 24 (6-20) Glucose Level 183 mg/dL (70-99) 141 mg/dL (70-99) Calcium Level 9.0 mg/dL (8.5-10.1) 8.9 mg/dL (8.5-10.1) Total Bilirubin 0.5 mg/dL (0.2-1.0) Aspartate Amino Transf (AST/SGOT) 22 U/L (15-37) Alanine Aminotransferase (ALT/SGPT) 18 U/L (14-59) Alkaline Phosphatase 141 U/L (46-116) Troponin I Quantitative < 0.017 ng/mL (0.000-0.055) Total Protein 7.3 g/dL (6.4-8.2) Albumin 3.0 g/dL (3.4-5.0) Albumin/Globulin Ratio 0.7 (1.0-1.7) Glucose (Fingerstick) 183 mg/dL (70-99) 138 mg/dL (70-99) Images Images Report reviewed, images independently reviewed. Left humerus, midshaft humeral shaft fracture with displacement. Left elbow supracondylar humerus fracture, bicondylar, with displacement mostly flexion, and no dislocation. [facility] [address] [place] [address] IMAGING REPORT Signed PATIENT: RAYMUNDO SEXTON ACCOUNT: [id number] : 1935 LOCATION: ER AGE: 83 SEX: F EXAM STATUS: REG ER ORD. PHYSICIAN: JENNYFER VALADEZ APRN REASON: fall PROCEDURE: HUMERUS LEFT 2 views left humerus and 3 views left elbow dated 06/25/2018. No comparison available. CLINICAL INDICATION: Pain after fall. FINDINGS: 2 views left humerus show a complete fracture at the humeral midshaft with one shaft width lateral displacement. Proximal humeral shaft is intact. 3 views of left elbow show a transverse fracture through the supracondylar left humerus, mildly displaced. There is also a fracture line extending to the articular surface at the intercondylar region with mild impaction and mild anterior displacement of the condylar fragments relative to the humeral shaft. Fat pad elevation suggesting joint effusion. The proximal radius and ulna is grossly intact, although there may be a small avulsion or chip fracture off the olecranon. IMPRESSION: 1. Transverse fracture at the humeral midshaft with one shaft width lateral displacement. 2. Complex T-shaped bicondylar fracture of the distal humerus with mild displacement. 3. Elbow joint effusion. Electronically signed by: Feliciano Oscar MD (06/25/2018 8:23 PM) [facility] [place] DICTATED and SIGNED BY: FELICIANO OSCAR MD DATE: 06/25/182019 Assessment/Plan Assessment/Plan Closed left humeral shaft fracture, and humeral supracondylar fracture on the same left humerus. She is 83 years old, and has a displaced supracondylar intracondylar humeral fracture which is difficult to treat at this age due to bone quality. I would consider plate fixation, although many subspecialists would likely consider elbow arthroplasty. Either of those fixations would be complicated by the humeral shaft fracture. This might require specialized extra long plates, and involves complex surgical planning. 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 This injury would best be cared for by an upper extremity subspecialist. I have never cared for this combined injury and feel she would best be served by subspecialty care. I also have no recent experience with elbow arthroplasty. The injury is closed, so there is no emergent need for surgery today, but inpatient hospital admission and surgical planning are recommended due to the unstable injury. I spoke to the patient about transfer to for subspecialty care and she agrees. PAM HOLLY MD Jun 26, 2018 10:56
[2018-06-26 11:00] VITALS: BP 109/55
[2018-06-26] MEDS ORDERED: CITALOPRAM 20 MG TABLET. PO SCH (12:00)
[2018-06-26] MEDS ORDERED: OMEGA-3 FATTY ACIDS/FISH OIL 1,000 MG CAPSULE. PO SCH (12:00)
[2018-06-26] MEDS ORDERED: ASPIRIN ENTERIC COATED 81 MG TABLET.DR. PO SCH (12:00)
--- NOTE | 2018-06-26 13:00 | NUR ---
Dr. Delatorre saw patient this morning and explained to patient that she has a complex fracture of the left arm and would require a subspecialty for surgery. He initiated the transfer to [facility] after speaking to patient and had patient agreement for transfer. transfer center called and requested documentation, which was faxed over per request. They called back with a room assignment [facility] bed 2 and report was given to Bebe THOMAS at that time. EMS transport set up for pickup driver at 1400. Family notified of transfer. Will prepare patient for transport and continue to monitor until EMS arrives.
--- NOTE | 2018-06-26 13:22 | DISCH ---
DISCHARGE INSTRUCTIONS Condition on Discharge Condition on Discharge: Guarded Activity After Discharge Activity Instructions for Disc: Activity as tolerated Bathing Instructions: No Tub Bath until see Lifting Instructions after Dis: No heavy lifting, No pulling or pushing, Do not lift >10 pounds Exercise Instruction after Dis: Progress as tolerated Driving Instructions after Dis: Do not drive today, No driving for 2 weeks Weight Bearing Status after Di: Full weight bearing Diet after Discharge Diet after Discharge: Regular Wound Incision Care Wound/Incision Care: Do not change dressing, May get incision wet Checks after Discharge Checks after discharge: Check blood press - daily, Weigh Yourself Daily Warfarin Follow-Up Warfarin Follow UP: TRANSFER TO [facility] TODAY EMMA ALLISON MD Jun 26, 2018 13:22
--- NOTE | 2018-06-26 13:24 | PDOC3 ---
Discharge Summary Date of Admission: Jun 25, 2018 Date of Discharge: Jun 26, 2018 Follow-Up: 1-2 days Admitting Diagnosis comment: PRESENTED TO ER POST FALL 83 years old, and has a displaced supracondylar intracondylar humeral fracture which is difficult to treat at this age due to bone quality. consider elbow arthroplasty. Either of those fixations would be complicated by the humeral shaft fracture. This might require specialized extra long plates, and involves complex surgical planning. DISCHARGE DX Assessment/Plan IMPRESSION: 1. Transverse fracture at the humeral midshaft with one shaft width lateral displacement. 2. Complex T-shaped bicondylar fracture of the distal humerus with mild displacement. 3. Elbow joint effusion. 4. MECHANICAL FALL 5. hx cva, gait disturbance , chronic 6. hx orthostatic hypotension 7. depression hx PLAN ORTHO CONSULT REC [facility] TRANSFER TODAY TRANSFER [facility] FX [facility]GT [place], Transfer team contacted by dr Nandini lofton FINAL DIAGNOSIS Problems Medical Problems: (1) Left elbow fracture Status: Acute (2) Left humeral fracture Status: Acute Brief Hospital Course Ms. Díaz is a 83 old [sex] who presented with [ ] CONDITION AT DISCHARGE: Comment (TRANSFERRED) Discharge Medications Current Medications Fentanyl Citrate (Fentanyl 2ml Vial) 50 mcg 1X ONCE IV Last administered on 06/25/18at 19:29; Start 06/25/18 at 19:15; Stop 06/25/18 at 19:16; Status DC Lidocaine/ Epinephrine (LIDOCAINE 1%-EPI 1:100,000 Multi-Dose) 20 ml 1X ONCE INJ Last administered on 06/25/18at 20:00; Start 06/25/18 at 19:15; Stop 06/25/18 at 19:16; Status DC Morphine Sulfate (Morphine Sulfate) 4 mg 1X ONCE IV Last administered on at 20:38; Start 06/25/18 at 20:45; Stop 06/25/18 at 20:46; Status DC Morphine Sulfate (Morphine Sulfate) 4 mg STK-MED ONCE .ROUTE ; Start 06/25/18 at 20:33; Stop 06/25/18 at 20:36; Status DC Ondansetron HCl (Zofran) 4 mg PRN Q8HRS PRN IV NAUSEA/VOMITING 1ST CHOICE; Start 06/25/18 at 23:45; Stop 06/26/18 at 23:44 Morphine Sulfate (Morphine Sulfate) 4 mg PRN Q2HR PRN IV SEVERE PAIN; Start 06/25/18 at 23:45; Stop 06/26/18 at 23:44 Sodium Chloride 1,000 ml @ 100 mls/hr Q10H IV Last administered on 06/26/18 09 :44; Start 06/25/18 at 23:45 Diphtheria/ Tetanus/Acell Pertussis (Boostrix) 0.5 ml ONCE ONCE VAX IM Last administered on 06/26/18 04:07; Start 06/26/18 at 01:00; Stop 06/26/18 at 01:01; Status DC Pharmacy Consult (C.diff Med Screen By Rx) 1 each 1X ONCE MC Last administered on 06/26/18 01:00; Start 06/26/18 at 01:00; Stop 06/26/18 at 01:01; Status DC Aspirin (Ecotrin) 81 mg DAILY08 PO Last administered on 06/26/18 12:40; Start 06/26/18 at 12:00 Atorvastatin Calcium (Lipitor) 40 mg HS PO ; Start 06/26/18 at 21:00 Citalopram Hydrobromide (CeleXA) 20 mg DAILY08 PO Last administered on 12:41; Start 06/26/18 at 12:00 Fish Oil (Fish Oil) 2,000 mg BID PO Last administered on 06/26/18 12:41; Start 06/26/18 at 12:00 Active Scripts Active Reported Amitiza (Lubiprostone) 8 Mcg Capsule 8 Mcg PO BID Lovaza ([place]-3 Acid Ethyl Esters) 1 Gm Capsule 1 Gm PO BID Celexa (Citalopram Hydrobromide) 20 Mg Tablet 20 Mg PO Lipitor (Atorvastatin Calcium) 10 Mg Tablet 40 Mg PO Vital Signs Vital Signs Date Time Temp Pulse Resp B/P (MAP) Pulse Ox O2 Delivery O2 Flow Rate FiO2 06/26/18 11:00 97.5 89 18 109/55 (73) 96 Room Air 97.5 06/26/18 08:00 2.0 Labs Laboratory Tests Test 06/25/18 20:15 06/25/18 23:59 06/26/18 04:50 06/26/18 08:02 White Blood Count 10.0 x10^3/uL (4.0-11.0) 8.3 x10^3/uL (4.0-11.0) Red Blood Count 3.98 x10^6/uL (3.50-5.40) 3.82 x10^6/uL (3.50-5.40) Hemoglobin 12.4 g/dL (12.0-15.5) 11.9 g/dL (12.0-15.5) Hematocrit 37.5 % (36.0-47.0) 36.4 % (36.0-47.0) Mean Corpuscular Volume 94 fL (79-100) 95 fL (79-100) Mean Corpuscular Hemoglobin 31 pg (25-35) 31 pg (25-35) Mean Corpuscular Hemoglobin Concent 33 g/dL (31-37) 33 g/dL (31-37) Red Cell Distribution Width 13.1 % (11.5-14.5) 13.2 % (11.5-14.5) Platelet Count 204 x10^3/uL (140-400) 177 x10^3/uL (140-400) Neutrophils (%) (Auto) 64 % (31-73) 72 % (31-73) Lymphocytes (%) (Auto) 26 % (24-48) 18 % (24-48) Monocytes (%) (Auto) 8 % (0-9) 11 % (0-9) Eosinophils (%) (Auto) 1 % (0-3) 0 % (0-3) Basophils (%) (Auto) 1 % (0-3) 0 % (0-3) Neutrophils # (Auto) 6.5 x10^3uL (1.8-7.7) 5.9 x10^3uL (1.8-7.7) Lymphocytes # (Auto) 2.6 x10^3/uL (1.0-4.8) 1.5 x10^3/uL (1.0-4.8) Monocytes # (Auto) 0.8 x10^3/uL (0.0-1.1) 0.9 x10^3/uL (0.0-1.1) Eosinophils # (Auto) 0.1 x10^3/uL (0.0-0.7) 0.0 x10^3/uL (0.0-0.7) Basophils # (Auto) 0.1 x10^3/uL (0.0-0.2) 0.0 x10^3/uL (0.0-0.2) Prothrombin Time 13.4 SEC (11.7-14.0) Prothromb Time International Ratio 1.1 (0.8-1.1) Activated Partial Thromboplast Time 25 SEC (24-38) Sodium Level 140 mmol/L (136-145) 141 mmol/L (136-145) Potassium Level 4.0 mmol/L (3.5-5.1) 5.1 mmol/L (3.5-5.1) Chloride Level 103 mmol/L (98-107) 105 mmol/L (98-107) Carbon Dioxide Level 25 mmol/L (21-32) 25 mmol/L (21-32) Anion Gap 12 (6-14) 11 (6-14) Blood Urea Nitrogen 29 mg/dL (7-20) 30 mg/dL (7-20) Creatinine 1.2 mg/dL (0.6-1.0) 1.6 mg/dL (0.6-1.0) Estimated GFR (Cockcroft-Gault) 42.7 30.6 BUN/Creatinine Ratio 24 (6-20) Glucose Level 183 mg/dL (70-99) 141 mg/dL (70-99) Calcium Level 9.0 mg/dL (8.5-10.1) 8.9 mg/dL (8.5-10.1) Total Bilirubin 0.5 mg/dL (0.2-1.0) Aspartate Amino Transf (AST/SGOT) 22 U/L (15-37) Alanine Aminotransferase (ALT/SGPT) 18 U/L (14-59) Alkaline Phosphatase 141 U/L (46-116) Troponin I Quantitative < 0.017 ng/mL (0.000-0.055) Total Protein 7.3 g/dL (6.4-8.2) Albumin 3.0 g/dL (3.4-5.0) Albumin/Globulin Ratio 0.7 (1.0-1.7) Glucose (Fingerstick) 183 mg/dL (70-99) 138 mg/dL (70-99) Laboratory Tests Test 06/25/18 20:15 06/25/18 23:59 06/26/18 04:50 06/26/18 08:02 White Blood Count 10.0 x10^3/uL (4.0-11.0) 8.3 x10^3/uL (4.0-11.0) Red Blood Count 3.98 x10^6/uL (3.50-5.40) 3.82 x10^6/uL (3.50-5.40) Hemoglobin 12.4 g/dL (12.0-15.5) 11.9 g/dL (12.0-15.5) Hematocrit 37.5 % (36.0-47.0) 36.4 % (36.0-47.0) Mean Corpuscular Volume 94 fL (79-100) 95 fL (79-100) Mean Corpuscular Hemoglobin 31 pg (25-35) 31 pg (25-35) Mean Corpuscular Hemoglobin Concent 33 g/dL (31-37) 33 g/dL (31-37) Red Cell Distribution Width 13.1 % (11.5-14.5) 13.2 % (11.5-14.5) Platelet Count 204 x10^3/uL (140-400) 177 x10^3/uL (140-400) Neutrophils (%) (Auto) 64 % (31-73) 72 % (31-73) Lymphocytes (%) (Auto) 26 % (24-48) 18 % (24-48) Monocytes (%) (Auto) 8 % (0-9) 11 % (0-9) Eosinophils (%) (Auto) 1 % (0-3) 0 % (0-3) Basophils (%) (Auto) 1 % (0-3) 0 % (0-3) Neutrophils # (Auto) 6.5 x10^3uL (1.8-7.7) 5.9 x10^3uL (1.8-7.7) Lymphocytes # (Auto) 2.6 x10^3/uL (1.0-4.8) 1.5 x10^3/uL (1.0-4.8) Monocytes # (Auto) 0.8 x10^3/uL (0.0-1.1) 0.9 x10^3/uL (0.0-1.1) Eosinophils # (Auto) 0.1 x10^3/uL (0.0-0.7) 0.0 x10^3/uL (0.0-0.7) Basophils # (Auto) 0.1 x10^3/uL (0.0-0.2) 0.0 x10^3/uL (0.0-0.2) Prothrombin Time 13.4 SEC (11.7-14.0) Prothromb Time International Ratio 1.1 (0.8-1.1) Activated Partial Thromboplast Time 25 SEC (24-38) Sodium Level 140 mmol/L (136-145) 141 mmol/L (136-145) Potassium Level 4.0 mmol/L (3.5-5.1) 5.1 mmol/L (3.5-5.1) Chloride Level 103 mmol/L (98-107) 105 mmol/L (98-107) Carbon Dioxide Level 25 mmol/L (21-32) 25 mmol/L (21-32) Anion Gap 12 (6-14) 11 (6-14) Blood Urea Nitrogen 29 mg/dL (7-20) 30 mg/dL (7-20) Creatinine 1.2 mg/dL (0.6-1.0) 1.6 mg/dL (0.6-1.0) Estimated GFR (Cockcroft-Gault) 42.7 30.6 BUN/Creatinine Ratio 24 (6-20) Glucose Level 183 mg/dL (70-99) 141 mg/dL (70-99) Calcium Level 9.0 mg/dL (8.5-10.1) 8.9 mg/dL (8.5-10.1) Total Bilirubin 0.5 mg/dL (0.2-1.0) Aspartate Amino Transf (AST/SGOT) 22 U/L (15-37) Alanine Aminotransferase (ALT/SGPT) 18 U/L (14-59) Alkaline Phosphatase 141 U/L (46-116) Troponin I Quantitative < 0.017 ng/mL (0.000-0.055) Total Protein 7.3 g/dL (6.4-8.2) Albumin 3.0 g/dL (3.4-5.0) Albumin/Globulin Ratio 0.7 (1.0-1.7) Glucose (Fingerstick) 183 mg/dL (70-99) 138 mg/dL (70-99) Allergies Allergies Coded Allergies Type Severity Reaction Last Updated Verified povidone-iodine Allergy Intermediate 02/09/14 Yes sulfamethoxazole Allergy Intermediate 06/26/18 Yes trimethoprim Allergy Intermediate 06/26/18 Yes metoclopramide Adverse Reaction Severe 02/09/14 Yes Disposition/Orders: D/C to Another Facility ([facility] IN PATIENT) EMMA ALLISON MD Jun 26, 2018 13:24
[2018-06-26 14:11] VITALS: BP 106/51
--- NOTE | 2018-06-26 14:12 | NUR ---
Discharge Note: RAYMUNDO SEXTON Discharge instructions and discharge home medications reviewed with Other facility and a copy given. All questions have been answered and understanding verbalized. The following instructions and handouts were given: transfer assessment and radiologic findings, history and list of current meds. IV was left intact for transfer. Patient discharged to [facility] with Ambulance Personnel via [facility]
[2018-06-26] MEDS ORDERED: ATORVASTATIN CALCIUM 10 MG TABLET. PO SCH (21:00)
== END 2018-06-26 14:14 | disposition short-term general hospital (02) | DRG 562 ==
LOC: ER 19:00 → 5 NORTH 21:55
PROVIDERS: ADMIT Internal Medicine; ATTEND Internal Medicine
DX: S42.412A Displaced simple supracondylar fracture without intercondylar fracture of left humerus, initial encounter for closed fracture (principal); N17.0 Acute kidney failure with tubular necrosis; E78.00 Pure hypercholesterolemia, unspecified; E78.5 Hyperlipidemia, unspecified; F32.9 Major depressive disorder, single episode, unspecified; I12.9 Hypertensive chronic kidney disease with stage 1 through stage 4 chronic kidney disease, or unspecified chronic kidney disease; I25.10 Atherosclerotic heart disease of native coronary artery without angina pectoris; K21.9 Gastro-esophageal reflux disease without esophagitis; N18.9 Chronic kidney disease, unspecified; W18.39XA Other fall on same level, initial encounter; F41.9 Anxiety disorder, unspecified; S01.01XA Laceration without foreign body of scalp, initial encounter; Z79.02 Long term (current) use of antithrombotics/antiplatelets; Z86.73 Personal history of transient ischemic attack (TIA), and cerebral infarction without residual deficits; Z90.710 Acquired absence of both cervix and uterus; Z87.440 Personal history of urinary (tract) infections; Y93.89 Activity, other specified; Y92.89 Other specified places as the place of occurrence of the external cause; Y99.8 Other external cause status; I25.2 Old myocardial infarction; Z88.8 Allergy status to other drugs, medicaments and biological substances
CPT/HCPCS: 12002; 36415; 70450; 71045; 72125; 72128; 73060; 73080; 80048; 80053; 82962; 84484; 85025; 85610; 85730; 90471; 90715; 93005; 96374; 96375; J2270; J3010; J3490; J7030; 99285-25; G0378

== ENCOUNTER 2018-07-30 15:52 | Inpatient (IN) | payer MEDICARE ==
[~2018-07-30] VITALS: Ht 167.6 cm; Wt 64.6 kg
[2018-07-30 19:00] VITALS: BP 114/62
[2018-07-30] MEDS ORDERED: ACET325T9 PO (19:51)
[2018-07-30] MEDS ORDERED: ZOLP5TAB5 PO (19:51)
[2018-07-30] MEDS ORDERED: OMEG1CAP6 PO (19:51)
[2018-07-30] MEDS ORDERED: TRAM50TA PO ×2 (19:51)
[2018-07-30] MEDS ORDERED: LORA0.5T PO (19:51)
[2018-07-30] MEDS ORDERED: LEVO750T31 PO (19:51)
[2018-07-30] MEDS ORDERED: ASPI81TA50 PO (19:51)
[2018-07-30] MEDS ORDERED: METH-37 PO (19:51)
[2018-07-30] MEDS ORDERED: SENN-37 PO (19:51)
[2018-07-30] MEDS ORDERED: ATORVASTATIN CALCIUM 10 MG TABLET. PO SCH (21:00)
[2018-07-30] MEDS: IV NORMAL SALINE 1000ML BAG 1,000 ML IV SCH (21:31)
[2018-07-30] MEDS: OMEGA-3 FATTY ACIDS/FISH OIL 1,000 MG CAPSULE. PO SCH (21:31)
[2018-07-30 22:51] VITALS: BP 107/65
[2018-07-31 03:00] VITALS: BP 106/50
[2018-07-31 06:07] LABS: BASO % 1 % (0-3); EOS % 0 % (0-3); LYMPH # 2.3 x10^3/uL (1.0-4.8); LYMPH % 41 % (24-48); MEAN CORPUSCULAR HEMOGLOBIN 31 pg (25-35); MEAN CORPUSCULAR HGB CONC 33 g/dL (31-37); MEAN CORPUSCULAR VOLUME 94 fL (79-100); MONO # 0.6 x10^3/uL (0.0-1.1); MONO % 12 % (0-9); NEUT # 2.6 x10^3uL (1.8-7.7); NEUT % 47 % (31-73); PLATELET COUNT 131 x10^3/uL (140-400); RED BLOOD COUNT 3.49 x10^6/uL (3.50-5.40); RED CELL DISTRIBUTION WIDTH 15.2 % (11.5-14.5); WHITE BLOOD COUNT 5.6 x10^3/uL (4.0-11.0)
[2018-07-31 06:45] LABS: ALBUMIN 2.3 g/dL (3.4-5.0); ALBUMIN/GLOBULIN RATIO 0.5 (1.0-1.7); CALCIUM 8.3 mg/dL (8.5-10.1); CREATININE 1.8 mg/dL (0.6-1.0); GFR 26.7; POTASSIUM 4.2 mmol/L (3.5-5.1); TOTAL BILIRUBIN 0.4 mg/dL (0.2-1.0); TOTAL PROTEIN 6.7 g/dL (6.4-8.2)
[2018-07-31 07:00] VITALS: BP 117/55
[2018-07-31] MEDS: CITALOPRAM 20 MG TABLET. PO SCH (10:07)
[2018-07-31] MEDS: OMEGA-3 FATTY ACIDS/FISH OIL 1,000 MG CAPSULE. PO SCH ×2 (10:07→21:25)
[2018-07-31 10:45] VITALS: BP 151/75
--- NOTE | 2018-07-31 12:26 | HP ---
ADMIT DATE: 07/30/2018 HISTORY OF PRESENT ILLNESS: The patient is an 83-year-old female patient, resident at [facility] where she was noted to have worsening kidney function. She has also urinary tract infection, and she has been basically refusing to eat and drink. We attempted to put an IV line at the [facility], started on IV fluid, but even the PICC line nurse could not put an IV line, midline or PICC line, and therefore, she was transferred to [facility] where multiple attempts by different nurses to put an IV line has failed. I attempted to put a central line, in fact I got the right internal jugular vein, but when I tried to push the guidewire through the trocar, it did not go smoothly, so I abandoned the procedure, and therefore, a decision was made to transfer her to [facility] to consult an yard pilot and to assist with getting her vascular access to start her on IV fluid. She also has a urinary tract infection, for which she was on Levaquin to be given every 48 hours. The patient herself does not give any useful information. PAST MEDICAL HISTORY: Significant for coronary artery disease, status post myocardial infarction, gastroesophageal reflux disease. She has a cerebrovascular accident, gastroesophageal reflux disease, depression, chronic kidney disease, recurrent UTIs, orthostatic hypotension and tardive dyskinesia. PAST SURGICAL HISTORY: Past medical history significant for total abdominal hysterectomy, bilateral salpingo-oophorectomy, permanent pacemaker placement as well as coronary artery disease with PCI and stent deployment. FAMILY HISTORY: Significant for hyperlipidemia, coronary artery disease and hypertension as well as depression. SOCIAL HISTORY: She is currently residing at [facility]. She does not smoke, drink alcohol or use any recreational drugs. ALLERGIES: SHE IS ALLERGIC TO ADHESIVE TAPE. METOCLOPRAMIDE, POVIDONE IODINE, SULFAMETHOXAZOLE AND TRIMETHOPRIM. MEDICATIONS: She is currently on the following medication, is on levofloxacin 750 mg every 48 hours, methocarbamol for Robaxin 500 mg p.o. b.i.d., atorvastatin calcium 40 mg at bedtime, omega-3 fatty acid for Lovaza 1 gram twice a day, omega-3 fish oil 1000 mg twice a day, aspirin 81 mg once a day, tramadol 50 mg p.o. b.i.d. and acetaminophen 650 mg 4 times a day, citalopram hydrobromide 20 mg daily. She is on lorazepam 0.5 mg at bedtime, Ambien 5 mg at bedtime, Amitiza 8 mcg twice a day, Senna-S 1 tablet twice a day. REVIEW OF SYSTEMS: As per history of present illness. PHYSICAL EXAMINATION: GENERAL: On arrival to the hospital, she looked well and was clearly in no apparent distress. On examining her, she was resting slightly propped up in bed, no apparent respiratory distress, slightly pale, but no jaundice, cyanosis or thyromegaly. No jugular venous distention. No lower limb edema. VITAL SIGNS: Her heart rate was 70, blood pressure 106/50, temperature was 97.9, respiratory rate was 16 and oxygen saturation was 91%. HEAD, EYES, EARS, NOSE AND THROAT: Showed normocephalic, atraumatic. NECK: Supple. HEART: Showed normal first and second heart sounds. No gallop, rub or murmur. CHEST: Clear to auscultation. No crepitation or rhonchi. ABDOMEN: Distended, soft, nontender. NEUROLOGIC: She is awake, alert, mostly nonverbal. All her cranial nerves intact. She moves her right upper extremity to much good extent than her left upper extremity as she has fracture of her left humerus and left elbow, treated with open reduction and internal fixation. She is mostly bedbound, chair bound. LABORATORY DATA: Showed a white cell count 5600, hemoglobin 11, hematocrit 33, MCV 94 and platelet count of 131,000. Her chemistry showed a serum sodium 140, potassium 4.2, chloride 105, bicarbonate 24, anion gap of 11, BUN 36, creatinine 1.8, estimated GFR was 26 mL per minute. Her glucose was 96, calcium was 8.3. Total bilirubin, AST, ALT were normal. Alkaline phosphatase slightly elevated. Total protein was 6.7, albumin 2.3. ASSESSMENT AND PLAN: In summary, this is an 83-year-old female patient with 1. Acute on chronic renal failure. Her creatinine has risen from 1-1.9. 2. Urinary tract infection. Unfortunately, I do not have the actual culture and sensitivity, but we did start her on Levaquin based on that culture. 3. Severe protein calorie malnutrition with serum albumin is only 2.3. 4. Severe anorexia and poor oral intake. 5. She has also maceration of the skin in her low back. So, we will switch her to a low air loss mattress. We will consult the wound care team. Continue with IV fluid. There is no restriction what she can eat and she should be on a regular diet. DICTATION ENDS HERE. CINTIA VILCHIS MD DR: GERALDINE/greg JOB#: [id number] / [id number]
[2018-07-31 14:32] VITALS: BP 120/61
[2018-07-31] MEDS: IV NORMAL SALINE 1000ML BAG 1,000 ML IV SCH (15:48)
[2018-07-31] MEDS ORDERED: ZOLPIDEM 5 MG TABLET. PO PRN (17:30)
[2018-07-31] MEDS ORDERED: traMADol 50 MG TABLET PO PRN (17:30)
[2018-07-31] MEDS ORDERED: ACETAMINOPHEN 325 MG TABLET. PO PRN (17:30)
[2018-07-31] MEDS: LUBIPROSTONE 8 MCG CAPSULE PO SCH (18:40)
[2018-07-31] MEDS: traMADol 50 MG TABLET PO PRN (18:41)
[2018-07-31 19:00] VITALS: BP 105/55
[2018-07-31] MEDS ORDERED: OMEGA-3 FATTY ACIDS/FISH OIL 1,000 MG CAPSULE. PO SCH (21:00)
[2018-07-31] MEDS: SENNOSIDES/DOCUSATE 8.6/50MG TABLET. PO SCH (21:00)
[2018-07-31] MEDS: METHOCARBAMOL 500 MG TABLET PO SCH (21:24)
[2018-07-31] MEDS: LORazepam 0.5 MG TABLET PO SCH (21:24)
[2018-07-31] MEDS: ATORVASTATIN CALCIUM 40 MG TABLET. PO SCH (21:24)
[2018-07-31 23:00] VITALS: BP 146/65
[2018-08-01] VITALS (7 sets, daily range): BP systolic 109–150; BP diastolic 50–82
[2018-08-01] MEDS: IV NORMAL SALINE 1000ML BAG 1,000 ML IV SCH ×2 (05:30→21:44)
--- NOTE | 2018-08-01 07:41 | NUR ---
DAILY WEIGHT NOTE: Unable to obtain correct daily weight on this patient. Bedscale states patient weighs 5.5lbs. Notified day shift RN of this, stated they will obtain accurate daily weight when patient is transferred to P500 bed which was delivered this morning at approximately 0630.
--- NOTE | 2018-08-01 07:41 | RAD ---
Portable chest, 07/31/2018: HISTORY: Cough with possible aspiration Comparison is made to a study from 06/25/2018. A left-sided transvenous pacing device remains in place with 2 leads extending into the right heart. The heart size is unchanged. There is calcific plaquing of the aorta. There is mild pleural/parenchymal scarring. A mild left basilar opacity has developed obscuring the hemidiaphragm. The right lung is clear. No definite pleural fluid is seen. IMPRESSION: Mild left basilar atelectasis/infiltrate. Electronically signed by: Abe Stephen MD (08/01/2018 7:38 AM) [facility]
[2018-08-01] MEDS: SENNOSIDES/DOCUSATE 8.6/50MG TABLET. PO SCH ×2 (09:11→21:44)
[2018-08-01] MEDS: OMEGA-3 FATTY ACIDS/FISH OIL 1,000 MG CAPSULE. PO SCH ×2 (09:12→21:43)
[2018-08-01] MEDS: ASPIRIN ENTERIC COATED 81 MG TABLET.DR. PO SCH (09:12)
[2018-08-01] MEDS: LUBIPROSTONE 8 MCG CAPSULE PO SCH ×2 (09:12→16:11)
[2018-08-01] MEDS: METHOCARBAMOL 500 MG TABLET PO SCH ×2 (09:12→21:44)
[2018-08-01] MEDS: CITALOPRAM 20 MG TABLET. PO SCH (09:12)
--- NOTE | 2018-08-01 10:03 | PDOC ---
PROGRESS NOTES Subjective Subjective none, covering for Thierry Objective Objective Vital Signs Date Time Temp Pulse Resp B/P (MAP) Pulse Ox O2 Delivery O2 Flow Rate FiO2 08/01/18 07:00 97.9 62 18 127/73 (91) 92 Room Air 97.9 Intake and Output 08/01/18 06:59 Intake Total 100 ml Balance 100 ml Intake Oral 100 ml # Voids 6 Physical Exam Abdomen: Normal bowel sounds, Soft Heart: Regular rate, Normal S1, Normal S2 Extremities: No clubbing General: No acute distress HEENT: PERRLA Lungs: Clear to auscultation MUSCULOSKELETAL: No swelling, Abnormal exam of left Neck: Supple Psych/Mental Status: Mood NL Assessment Assessment ASSESSMENT AND PLAN: 1. Acute on chronic renal failure. Her creatinine has risen from 1-1.9. 2. Urinary tract infection. Unfortunately, we did start her on Levaquin based on that culture. 3. Severe protein calorie malnutrition with serum albumin is only 2.3. 4. Severe anorexia and poor oral intake. 5. She has also maceration of the skin in her low back. PLAN: iv fluids monitor kidney function levaquin for uti So, we will switch her to a low air loss mattress. We will consult the wound care team. Continue with IV fluid. There is no restriction what she can eat and she should be on a regular diet. Comment Review of Relevant I have reviewed the following items (where applicable) has been applied. Medications Current Medications Acetaminophen (Tylenol) 650 mg PRN QID PRN PO PAIN; Start 07/31/18 at 17:30 Aspirin (Ecotrin) 81 mg DAILY PO Last administered on 08/01/18at 09:12; Start at 09:00 Atorvastatin Calcium (Lipitor) 40 mg QHS PO Last administered on 07/31/18at 21: 24; Start 07/31/18 at 21:00 Fish Oil (Fish Oil) 1,000 mg BID PO ; Start 07/31/18 at 21:00; Status UNV Levofloxacin (Levaquin) 250 mg DAILY06 PO Last administered on 08/01/18at 06:15 ; Start 08/01/18 at 06:00 Lorazepam (Ativan) 0.5 mg QHS PO Last administered on 07/31/18at 21:24; Start at 21:00 Lubiprostone (Amitiza) 8 mcg BIDWMEALS PO Last administered on 08/01/18at 09:12 ; Start 07/31/18 at 18:00 Methocarbamol (Robaxin) 500 mg BID PO Last administered on 08/01/18at 09:12; Start 07/31/18 at 21:00 Senna/Docusate Sodium (Senna Plus) 1 tab BID PO Last administered on 08/01/18at 09:11; Start 07/31/18 at 21:00 Tramadol HCl (Ultram) 50 mg PRN BID PRN PO MILD PAIN Last administered on at 18:41; Start 07/31/18 at 17:30 Tramadol HCl (Ultram) 100 mg PRN Q6HRS PRN PO MODERATE TO SEVERE PAIN; Start at 17:30 Zolpidem Tartrate (Ambien) 5 mg PRN QHS PRN PO INSOMNIA; Start 07/31/18 at 17: 30 Vitals/I & O Vital Sign - Last 24 Hours 07/31/18 07/31/18 07/31/18 07/31/18 10:45 14:32 18:41 19:00 Temp 98.1 97.9 99.0 98.1 97.9 99.0 Pulse 75 82 78 Resp 18 18 20 18 B/P (MAP) 151/75 (100) 120/61 (80) 105/55 (72) Pulse Ox 92 92 20 94 O2 Delivery Room Air Room Air Room Air Room Air 07/31/18 07/31/18 07/31/18 08/01/18 19:45 20:01 23:00 03:00 Temp 98.5 97.9 98.5 97.9 Pulse 81 64 Resp 15 19 17 B/P (MAP) 146/65 (92) 109/50 (69) Pulse Ox 20 95 90 O2 Delivery Room Air Room Air Room Air Room Air 08/01/18 07:00 Temp 97.9 97.9 Pulse 62 Resp 18 B/P (MAP) 127/73 (91) Pulse Ox 92 O2 Delivery Room Air Intake and Output 07/31/18 07/31/18 08/01/18 14:59 22:59 06:59 Intake Total 100 ml Balance 100 ml TRAVIS MELO MD Aug 01, 2018 10:03
--- NOTE | 2018-08-01 11:15 | NUR ---
SW following for discharge planning. Discussed with RN, pt needing central line. SW confirmed pt is from [facility]. SW attempted to contact pt's daughter Karley ([phone]) to discuss discharge planning, however the call could not be connected. Pt's family visits with pt at [facility], SW will attempt to meet with them when they are here. RN notified. SW will continue to follow.
--- NOTE | 2018-08-01 14:38 | NUR ---
Wound Care Wound care consult for buttock wound. Pt has some incontinence associated dermatitis to bilateral buttocks. Cleansed area, applied Calazime for protection, recommend to reapply with each brief change or BID. No other wounds noted on full skin inspection. Pt left on right side with heels floated. WC will continue to follow for possible changes.
[2018-08-01] MEDS: traMADol 50 MG TABLET PO PRN (16:11)
[2018-08-01] MEDS: LORazepam 0.5 MG TABLET PO SCH (21:44)
[2018-08-01] MEDS: ATORVASTATIN CALCIUM 40 MG TABLET. PO SCH (21:44)
[2018-08-02 03:00] VITALS: BP 155/97
[2018-08-02 06:55] LABS: CALCIUM 8.4 mg/dL (8.5-10.1); GFR 52.7; POTASSIUM 3.3 mmol/L (3.5-5.1)
[2018-08-02 07:00] VITALS: BP 151/99
[2018-08-02] MEDS: IV NORMAL SALINE 1000ML BAG 1,000 ML IV SCH ×2 (10:05→15:40)
[2018-08-02] MEDS: SENNOSIDES/DOCUSATE 8.6/50MG TABLET. PO SCH ×2 (10:06→21:00)
[2018-08-02] MEDS: LUBIPROSTONE 8 MCG CAPSULE PO SCH ×2 (10:06→17:00)
[2018-08-02] MEDS: CITALOPRAM 20 MG TABLET. PO SCH (10:07)
[2018-08-02] MEDS: OMEGA-3 FATTY ACIDS/FISH OIL 1,000 MG CAPSULE. PO SCH ×2 (10:07→21:00)
[2018-08-02] MEDS: METHOCARBAMOL 500 MG TABLET PO SCH ×2 (10:07→21:00)
[2018-08-02] MEDS: ASPIRIN ENTERIC COATED 81 MG TABLET.DR. PO SCH (10:07)
--- NOTE | 2018-08-02 10:22 | PDOC ---
PROGRESS NOTES Subjective Subjective left shoulder pain Objective Objective Vital Signs Date Time Temp Pulse Resp B/P (MAP) Pulse Ox O2 Delivery O2 Flow Rate FiO2 08/02/18 10:06 14 94 Room Air 08/02/18 07:00 98.4 88 151/99 (116) 98.4 Intake and Output 08/02/18 07:00 Intake Total 420 ml Balance 420 ml Intake Oral 420 ml # Voids 3 Physical Exam Abdomen: Normal bowel sounds, Soft Heart: Regular rate, Normal S1, Normal S2 Extremities: No clubbing General: No acute distress HEENT: PERRLA Lungs: Clear to auscultation MUSCULOSKELETAL: No swelling, Abnormal exam of left Neck: Supple Psych/Mental Status: Mood NL COMMENT left shoulder not able to move Assessment Assessment ASSESSMENT AND PLAN: 1. Acute on chronic renal failure. Her creatinine has risen from 1-1.9. 2. Urinary tract infection. Unfortunately, we did start her on Levaquin based on that culture. 3. Severe protein calorie malnutrition with serum albumin is only 2.3. 4. Severe anorexia and poor oral intake. 5. She has also maceration of the skin in her low back. PLAN: iv fluids for now monitor kidney function, normal today levaquin for uti vedio swallow study for dysphagia x ray shoulder rehab consult replace sona,3.3. today So, we will switch her to a low air loss mattress. We will consult the wound care team. Continue with IV fluid. There is no restriction what she can eat and she should be on a regular diet. Comment Review of Relevant I have reviewed the following items (where applicable) has been applied. Labs Laboratory Tests Test 08/02/18 05:37 Sodium Level 140 mmol/L (136-145) Potassium Level 3.3 mmol/L (3.5-5.1) Chloride Level 105 mmol/L (98-107) Carbon Dioxide Level 25 mmol/L (21-32) Anion Gap 10 (6-14) Blood Urea Nitrogen 13 mg/dL (7-20) Creatinine 1.0 mg/dL (0.6-1.0) Estimated GFR (Cockcroft-Gault) 52.7 Glucose Level 90 mg/dL (70-99) Calcium Level 8.4 mg/dL (8.5-10.1) Vitals/I & O Vital Sign - Last 24 Hours 08/01/18 08/01/18 08/01/18 08/01/18 11:06 13:43 14:50 16:11 Temp 97.9 97.9 97.9 97.9 97.9 97.9 Pulse 70 64 64 Resp 18 18 18 14 B/P (MAP) 129/70 (89) 125/69 (87) 125/69 (87) Pulse Ox 92 92 92 O2 Delivery Room Air Room Air Room Air Room Air 08/01/18 08/01/18 08/01/18 08/02/18 18:43 20:30 23:00 03:00 Temp 97.8 97.7 98.8 97.8 97.7 98.8 Pulse 65 73 84 Resp 18 20 20 B/P (MAP) 130/74 (92) 150/82 (104) 155/97 (116) Pulse Ox 92 93 92 O2 Delivery Room Air Room Air 08/02/18 08/02/18 07:00 10:06 Temp 98.4 98.4 Pulse 88 Resp 18 14 B/P (MAP) 151/99 (116) Pulse Ox 94 94 O2 Delivery Room Air Room Air Intake and Output 08/01/18 08/01/18 08/02/18 15:00 23:00 07:00 Intake Total 120 ml 300 ml Balance 120 ml 300 ml Nutrition Consultation Dietary Evaluation: Recommendations by RD: Increase Calorie Intake, Protein supplementation Comments: rec diet per [employer] with appropriate supplements Expected Outcomes/Goals: diet tolerance, to meet > 75% est nutr needs Malnutrition Findings: Body Fat Depletion (Non Severe: Mild Depletion Weight Status: Appropriate TRAVIS MELO MD Aug 02, 2018 10:22
[2018-08-02] MEDS ORDERED: BARIUM SULFATE 40% (APPLE) 148 GM PWD. PO ONE ×2 (10:30→13:00)
[2018-08-02 11:00] VITALS: BP 144/84
[2018-08-02] MEDS ORDERED: POTASSIUM CHLORIDE 20 MEQ TABLET.ER. PO ONE (11:00)
[2018-08-02] MEDS ORDERED: ONDANSETRON PF 4 MG/2 ML VIAL. IV PRN (11:15)
--- NOTE | 2018-08-02 13:33 | NUR ---
SW following. Discussed with RN. MERY contacted [facility] again to determine where pt's dtr is at with the LTC application. MERY awaiting call back. RN notified.
--- NOTE | 2018-08-02 13:38 | RAD ---
Video dysphasia study, 08/02/2018: History: Dysphasia The swallowing mechanism was examined fluoroscopically in the lateral projection while the patient ingested a variety of food materials mixed with barium. 3 minutes of fluoroscopy time was utilized. One video fluoroscopic loop was recorded by a member of the speech Department. The exam was compromised by the patient's inability to hold her head straight. When ingesting the thin liquids there was deep laryngeal penetration with minimal marisa aspiration. When the thicker materials were utilized the laryngeal penetration during swallowing abated. There was a large amount of vallecular and piriform sinus residue with the thicker materials such as the pudding. This eventually resulted in mild intermittent delayed laryngeal penetration. This puts the patient at risk for delayed aspiration.
--- NOTE | 2018-08-02 14:34 | RAD ---
Left shoulder, 2 views, 08/02/2018: HISTORY: Shoulder pain, arthritis The bony structures are demineralized. There is mild degenerative change at the glenohumeral and acromioclavicular articulations. No acute fracture or dislocation is identified. A surgical plate and screws is partially visualized in the proximal humerus. Transvenous pacing leads overlie the upper chest. IMPRESSION: 1. Mild degenerative change. 2. Partially visualized humeral surgical plate and screws.. 3. No acute bony abnormality is detected. Electronically signed by: Abe Stephen MD (08/02/2018 2:31 PM) [facility]
[2018-08-02 15:00] VITALS: BP 115/75
--- NOTE | 2018-08-02 15:20 | NUR ---
MERY faxed paperwork to [facility].
[2018-08-02 19:00] VITALS: BP 120/72
[2018-08-02] MEDS: LORazepam 0.5 MG TABLET PO SCH (21:00)
[2018-08-02] MEDS: ATORVASTATIN CALCIUM 40 MG TABLET. PO SCH (21:00)
[2018-08-02] MEDS: DICLOFENAC SODIUM 1% TOPICAL GEL 100GM TUBE. TP SCH (21:49)
[2018-08-02] MEDS: AMINO AC 3%/ELECTROLYTE/GLYCER 1,000 ML IV SCH (21:49)
[2018-08-02] MEDS: NYSTATIN 100,000 UNIT/GM TOPICAL CREAM 15GM TUBE. TP SCH (21:49)
[2018-08-02 23:00] VITALS: BP 159/92
--- NOTE | 2018-08-03 02:11 | CONS ---
DATE OF CONSULTATION: ATTENDING PHYSICIAN: Dr. Guadarrama. REASON FOR CONSULTATION: The patient was seen at the request of Dr. Chen for rehab evaluation. HISTORY OF PRESENT ILLNESS: This is an 83-year-old right-handed female patient who has been in and out of senior living care unit and hospitals since she had a fall and sustained fracture of left humerus and left elbow and she had surgical repair, including left elbow replacement. Postop, she has been at senior living care unit. She is also being treated for worsening kidney infection and urinary tract infection. Basically, she is refusing to eat and drink. The patient was transferred to [facility] where multiple attempts by different nurses to put an IV has failed. The patient was transferred to [facility] on 07/30/2018 for vascular access to start IV fluids and also for treatment of urinary tract infection. PAST MEDICAL HISTORY: Significant for coronary artery disease, status post myocardial infarction, gastroesophageal reflux disease, cerebrovascular accident, depression, chronic kidney disease, recurrent urinary tract infection, orthostatic hypotension and tardive dyskinesia. Status post total abdominal hysterectomy and bilateral salpingo-oophorectomy, permanent pacemaker placement and stent placement. Past medical history also includes hyperlipidemia, coronary artery disease and depression. The patient used to live with her daughter and she had been independent with her mobility prior to the fall. ALLERGIES: SHE IS KNOWN ALLERGIC TO ADHESIVE TAPE, METOCLOPRAMIDE, IODINE AND SULFA. The patient failed video dysphagia study this afternoon. The patient is being followed by Physical Therapy and Occupational Therapy. She complains of nausea with any activity. The patient denies any significant shoulder area pain at the present time. PHYSICAL EXAMINATION: Today revealed an elderly female. She is awake, oriented to place and person, follows commands appropriately, moves all 4 extremities voluntarily. She had significant weakness of the left shoulder girdle muscles. Deep tendon reflexes are 1-2+ and symmetrical, with absent ankle jerks. She had equal perception on touch and pinprick sensation bilaterally. She had significant edema of her left arm and elbow and forearm area. No significant pain on range of motion of her shoulder or elbow. She requires help with bed mobility. I have not tested her transfers or ambulation skills at this time. She had crepitus on range of motion of both knee joints with knee joint effusion, but pain-free range of motion on both hip and knee joints. She is receiving IV fluids. She had an indwelling Lozano catheter in place. ASSESSMENT: Mobility and self-care limitations in a patient with deconditioned state, status post fall and fracture of left humeral shaft and left elbow, status post surgical repair in a patient with known coronary artery disease, previous myocardial infarction, gastroesophageal reflux disease, cerebrovascular accident, depression, chronic kidney disease and recurrent urinary tract infections. Also, problems with orthostatic hypotension, tardive dyskinesia. The patient is status post permanent pacemaker placement and coronary stent placement, dysphagia, clinical evidence of peripheral neuropathy and degenerative joint disease of both knees without much pain. RECOMMENDATIONS: I agree with the plan for physical therapy, occupational therapy and speech pathology to get her up as tolerated and plans for transfer to senior living care unit when medically stable. Dr. Chen, I appreciate asking me to participate in the care of this interesting patient. I will be glad to follow her with you as needed for her rehabilitation. LESLIE MARLOW MD DR: [place]/greg JOB#: [id number] / [id number]
[2018-08-03 03:00] VITALS: BP 172/98
[2018-08-03] MEDS: IV NORMAL SALINE 1000ML BAG 1,000 ML IV SCH (06:17)
[2018-08-03 07:00] VITALS: BP 163/91
[2018-08-03] MEDS: LUBIPROSTONE 8 MCG CAPSULE PO SCH ×2 (08:00→15:00)
[2018-08-03 08:14] LABS: BASO % 0 % (0-3); EOS # 0.2 x10^3/uL (0.0-0.7); EOS % 3 % (0-3); HEMATOCRIT 36.2 % (36.0-47.0); LYMPH # 2.5 x10^3/uL (1.0-4.8); LYMPH % 43 % (24-48); MEAN CORPUSCULAR HEMOGLOBIN 31 pg (25-35); MEAN CORPUSCULAR HGB CONC 33 g/dL (31-37); MEAN CORPUSCULAR VOLUME 93 fL (79-100); MONO # 0.6 x10^3/uL (0.0-1.1); MONO % 10 % (0-9); NEUT # 2.5 x10^3uL (1.8-7.7); NEUT % 43 % (31-73); PLATELET COUNT 157 x10^3/uL (140-400); RED BLOOD COUNT 3.88 x10^6/uL (3.50-5.40); RED CELL DISTRIBUTION WIDTH 14.5 % (11.5-14.5); WHITE BLOOD COUNT 5.8 x10^3/uL (4.0-11.0)
[2018-08-03 08:26] LABS: CALCIUM 8.4 mg/dL (8.5-10.1); GFR 52.7; POTASSIUM 3.7 mmol/L (3.5-5.1)
[2018-08-03] MEDS: DICLOFENAC SODIUM 1% TOPICAL GEL 100GM TUBE. TP SCH ×2 (09:00→20:44)
[2018-08-03] MEDS: CITALOPRAM 20 MG TABLET. PO SCH (09:00)
[2018-08-03] MEDS: ASPIRIN ENTERIC COATED 81 MG TABLET.DR. PO SCH (09:00)
[2018-08-03] MEDS: METHOCARBAMOL 500 MG TABLET PO SCH ×2 (09:00→19:55)
[2018-08-03] MEDS: SENNOSIDES/DOCUSATE 8.6/50MG TABLET. PO SCH ×2 (09:00→19:56)
[2018-08-03] MEDS: OMEGA-3 FATTY ACIDS/FISH OIL 1,000 MG CAPSULE. PO SCH ×2 (09:00→19:55)
[2018-08-03 10:49] VITALS: BP 125/73
--- NOTE | 2018-08-03 10:52 | PDOC ---
PROGRESS NOTES Subjective Subjective She failed swallowing study and not interested in tube feedings. Objective Objective Vital Signs Date Time Temp Pulse Resp B/P (MAP) Pulse Ox O2 Delivery O2 Flow Rate FiO2 08/03/18 07:00 98.6 78 18 163/91 (115) 93 Room Air 98.6 Intake and Output 08/03/18 06:59 Intake Total 1000 ml Output Total 1550 ml Balance -550 ml Intake Oral 0 ml IV Total 1000 ml Output Urine Total 1550 ml # Voids 1 Physical Exam Physical Exam She is supine in bed and continues with generalized muscle weakness and mobility and self care limitations and dependent edema of left arm and elbow. I spoke to ,nursing and patient's daughter. Plan Plan of Care Agree with 's plans. To get her up as tolerated. Comment Review of Relevant I have reviewed the following items (where applicable) has been applied. Labs Laboratory Tests Test 08/02/18 05:37 08/03/18 07:20 Sodium Level 140 mmol/L (136-145) 135 mmol/L (136-145) Potassium Level 3.3 mmol/L (3.5-5.1) 3.7 mmol/L (3.5-5.1) Chloride Level 105 mmol/L (98-107) 102 mmol/L (98-107) Carbon Dioxide Level 25 mmol/L (21-32) 24 mmol/L (21-32) Anion Gap 10 (6-14) 9 (6-14) Blood Urea Nitrogen 13 mg/dL (7-20) 14 mg/dL (7-20) Creatinine 1.0 mg/dL (0.6-1.0) 1.0 mg/dL (0.6-1.0) Estimated GFR (Cockcroft-Gault) 52.7 52.7 Glucose Level 90 mg/dL (70-99) 98 mg/dL (70-99) Calcium Level 8.4 mg/dL (8.5-10.1) 8.4 mg/dL (8.5-10.1) White Blood Count 5.8 x10^3/uL (4.0-11.0) Red Blood Count 3.88 x10^6/uL (3.50-5.40) Hemoglobin 12.0 g/dL (12.0-15.5) Hematocrit 36.2 % (36.0-47.0) Mean Corpuscular Volume 93 fL (79-100) Mean Corpuscular Hemoglobin 31 pg (25-35) Mean Corpuscular Hemoglobin Concent 33 g/dL (31-37) Red Cell Distribution Width 14.5 % (11.5-14.5) Platelet Count 157 x10^3/uL (140-400) Neutrophils (%) (Auto) 43 % (31-73) Lymphocytes (%) (Auto) 43 % (24-48) Monocytes (%) (Auto) 10 % (0-9) Eosinophils (%) (Auto) 3 % (0-3) Basophils (%) (Auto) 0 % (0-3) Neutrophils # (Auto) 2.5 x10^3uL (1.8-7.7) Lymphocytes # (Auto) 2.5 x10^3/uL (1.0-4.8) Monocytes # (Auto) 0.6 x10^3/uL (0.0-1.1) Eosinophils # (Auto) 0.2 x10^3/uL (0.0-0.7) Basophils # (Auto) 0.0 x10^3/uL (0.0-0.2) Laboratory Tests Test 08/03/18 07:20 White Blood Count 5.8 x10^3/uL (4.0-11.0) Red Blood Count 3.88 x10^6/uL (3.50-5.40) Hemoglobin 12.0 g/dL (12.0-15.5) Hematocrit 36.2 % (36.0-47.0) Mean Corpuscular Volume 93 fL (79-100) Mean Corpuscular Hemoglobin 31 pg (25-35) Mean Corpuscular Hemoglobin Concent 33 g/dL (31-37) Red Cell Distribution Width 14.5 % (11.5-14.5) Platelet Count 157 x10^3/uL (140-400) Neutrophils (%) (Auto) 43 % (31-73) Lymphocytes (%) (Auto) 43 % (24-48) Monocytes (%) (Auto) 10 % (0-9) Eosinophils (%) (Auto) 3 % (0-3) Basophils (%) (Auto) 0 % (0-3) Neutrophils # (Auto) 2.5 x10^3uL (1.8-7.7) Lymphocytes # (Auto) 2.5 x10^3/uL (1.0-4.8) Monocytes # (Auto) 0.6 x10^3/uL (0.0-1.1) Eosinophils # (Auto) 0.2 x10^3/uL (0.0-0.7) Basophils # (Auto) 0.0 x10^3/uL (0.0-0.2) Sodium Level 135 mmol/L (136-145) Potassium Level 3.7 mmol/L (3.5-5.1) Chloride Level 102 mmol/L (98-107) Carbon Dioxide Level 24 mmol/L (21-32) Anion Gap 9 (6-14) Blood Urea Nitrogen 14 mg/dL (7-20) Creatinine 1.0 mg/dL (0.6-1.0) Estimated GFR (Cockcroft-Gault) 52.7 Glucose Level 98 mg/dL (70-99) Calcium Level 8.4 mg/dL (8.5-10.1) Medications Current Medications Atorvastatin Calcium (Lipitor) 40 mg QHS PO Last administered on 07/30/18 21:30 ; Start 07/30/18 at 21:00; Stop 07/31/18 at 18:37; Status DC Citalopram Hydrobromide (CeleXA) 20 mg DAILY PO Last administered on 08/02/18 10:07; Start 07/31/18 at 09:00 Fish Oil (Fish Oil) 2,000 mg BID PO Last administered on 08/02/18 10:07; Start 07/30/18 at 21:00 Sodium Chloride 1,000 ml @ 75 mls/hr [id number] IV Last administered on 06:17; Start 07/30/18 at 21:00 Acetaminophen (Tylenol) 650 mg PRN QID PRN PO PAIN; Start 07/31/18 at 17:30 Aspirin (Ecotrin) 81 mg DAILY PO Last administered on 08/02/18 10:07; Start at 09:00 Levofloxacin (Levaquin) 250 mg DAILY06 PO Last administered on 08/02/18 06:32 ; Start 08/01/18 at 06:00 Lorazepam (Ativan) 0.5 mg QHS PO Last administered on 08/01/18 21:44; Start at 21:00 Lubiprostone (Amitiza) 8 mcg BIDWMEALS PO Last administered on 08/02/18 10:06 ; Start 07/31/18 at 18:00 Methocarbamol (Robaxin) 500 mg BID PO Last administered on 08/02/18 10:07; Start 07/31/18 at 21:00 Fish Oil (Fish Oil) 1,000 mg BID PO ; Start 07/31/18 at 21:00; Status UNV Senna/Docusate Sodium (Senna Plus) 1 tab BID PO Last administered on 08/02/18 21:00; Start 07/31/18 at 21:00 Tramadol HCl (Ultram) 50 mg PRN BID PRN PO MILD PAIN Last administered on 16:11; Start 07/31/18 at 17:30 Tramadol HCl (Ultram) 100 mg PRN Q6HRS PRN PO MODERATE TO SEVERE PAIN Last administered on 08/02/18 10:06; Start 07/31/18 at 17:30 Zolpidem Tartrate (Ambien) 5 mg PRN QHS PRN PO INSOMNIA; Start 07/31/18 at 17: 30 Atorvastatin Calcium (Lipitor) 40 mg QHS PO Last administered on 08/01/18 21: 44; Start 07/31/18 at 21:00 Potassium Chloride (Klor-Con) 20 meq 1X ONCE PO Last administered on 11:26; Start 08/02/18 at 11:00; Stop 08/02/18 at 11:01; Status DC Barium Sulfate (Varibar Thin Liquid Apple) 148 gm 1X ONCE PO ; Start 08/02/18 at 10:30; Stop 08/02/18 at 10:35; Status DC Ondansetron HCl (Zofran) 4 mg PRN Q6HRS PRN IV NAUSEA/VOMITING Last administered on 08/02/18 11:26; Start 08/02/18 at 11:15 Barium Sulfate (Varibar Thin Liquid Apple) 148 gm 1X ONCE PO ; Start 08/02/18 at 13:00; Stop 08/02/18 at 13:01; Status DC Amino Acids/ Glycerin/ Electrolytes 1,000 ml @ 80 mls/hr [id number] IV Last administered on 08/02/18at 21:49; Start 08/02/18 at 19:00 Diclofenac Sodium (Voltaren) 1 landry BID TP Last administered on 08/02/18at 21:49 ; Start 08/02/18 at 21:00 Nystatin (Mycostatin) 1 landry BID TP Last administered on 08/02/18at 21:49; Start 08/02/18 at 21:00 Active Scripts Active Reported Tramadol Hcl 50 Mg Tablet 100 Mg PO PRN Q6HRS PRN Tramadol Hcl 50 Mg Tablet 50 Mg PO BID PRN Levaquin (Levofloxacin) 750 Mg Tablet 1 Tab PO QODAY Zolpidem Tartrate 5 Mg Tablet 5 Mg PO PRN QHS PRN Senokot-S Tablet (Sennosides/Docusate Sodium) 1 Each Tablet 1 Tab PO BID Fish Oil 1,000 Mg Capsule ([place]-3 Fatty Acids/Fish Oil) 1 Each Capsule 1 Each PO BID Robaxin (Methocarbamol) 500 Mg Tablet 500 Mg PO BID Lorazepam 0.5 Mg Tablet 0.5 Mg PO HS Aspir-Low (Aspirin) 81 Mg Tablet.dr 1 Tab PO DAILY Tylenol (Acetaminophen) 325 Mg Tablet 1-2 Tab PO QID Amitiza (Lubiprostone) 8 Mcg Capsule 8 Mcg PO BID Lovaza ([place]-3 Acid Ethyl Esters) 1 Gm Capsule 1 Gm PO BID Celexa (Citalopram Hydrobromide) 20 Mg Tablet 20 Mg PO Lipitor (Atorvastatin Calcium) 10 Mg Tablet 40 Mg PO Vitals/I & O Vital Sign - Last 24 Hours 08/02/18 08/02/18 08/02/18 08/02/18 11:00 11:06 15:00 19:00 Temp 98.2 97.8 97.7 98.2 97.8 97.7 Pulse 86 83 80 Resp 18 18 18 B/P (MAP) 144/84 (104) 115/75 (88) 120/72 (88) Pulse Ox 93 94 93 93 O2 Delivery Room Air Room Air Room Air 08/02/18 08/03/18 08/03/18 23:00 03:00 07:00 Temp 97.7 98.2 98.6 97.7 98.2 98.6 Pulse 82 78 78 Resp 20 18 18 B/P (MAP) 159/92 (114) 172/98 (122) 163/91 (115) Pulse Ox 94 93 93 O2 Delivery Room Air Intake and Output 08/02/18 08/02/18 08/03/18 14:59 22:59 06:59 Intake Total 0 ml 1000 ml Output Total 300 ml 1250 ml Balance -300 ml -250 ml Nutrition Consultation Dietary Evaluation: Recommendations by RD: Increase Calorie Intake, Protein supplementation Comments: rec diet per [employer] with appropriate supplements Expected Outcomes/Goals: diet tolerance, to meet > 75% est nutr needs Malnutrition Findings: Body Fat Depletion (Non Severe: Mild Depletion Weight Status: Appropriate LESLIE MARLOW MD Aug 03, 2018 10:52
--- NOTE | 2018-08-03 14:10 | NUR ---
MERY following. Discussed with RN, and Dr. Guadarrama - pt failed the video swallow this morning and pt and pt's dtr do not want to do any feeding tubes. MERY has been on the phone on and off with [facility] to determine if pt can go there LTC with palliative/ hospice. [facility] advised they no longer have a female LTC bed. Dr. Guadarrama consulted palliative care. MERY met with pt's dtr, Елена as she had questions about palliative vs hospice and where pt can go with that. Елена requested MERY contact [facility] to determine medicaid pending, as well as [facility], and [facility] to determine if they can take medicaid pending and have any LTC beds. [facility] requested MERY fax clinicals and will look into it. MERY left voicemail for Hallie ORDONEZ at [facility]. MERY left voicemail for Monica at [facility], requesting pt's medicaid pending number. MERY text messaged pt's daughter, Елена at her request to update of progress. RN notified. MERY will continue to follow.
[2018-08-03] MEDS: NYSTATIN 100,000 UNIT/GM TOPICAL CREAM 15GM TUBE. TP SCH ×2 (14:58→20:45)
[2018-08-03] MEDS: AMINO AC 3%/ELECTROLYTE/GLYCER 1,000 ML IV SCH ×2 (14:59→20:45)
[2018-08-03 15:00] VITALS: BP 126/69
[2018-08-03] MEDS: NYSTATIN 100,000 UNITS/ML 5 ML ORAL.SUSP. SWSW SCH ×2 (16:00→20:45)
--- NOTE | 2018-08-03 16:13 | NUR ---
SW following. Discussed with RN. [facility] have accepted pt medicaid pending for LTC and will wait to hear regarding Hospice/Palliative. Family meeting set up between Gisselle Adriana and pt's daughter Елена ([phone]) at 10.30am. RN notified. SW will continue to follow.
--- NOTE | 2018-08-03 18:03 | PDOC2 ---
PALLIATIVE CARE Palliative Care Note Palliative Care Consult requested to address goals of care. Medical Assessment per medical record; 1. Acute on chronic renal failure. Her creatinine has risen from 1-1.9. 2. Urinary tract infection. Unfortunately, we did start her on Levaquin based on that culture. 3. Severe protein calorie malnutrition with serum albumin is only 2.3. 4. Severe anorexia and poor oral intake. 5. She has also maceration of the skin in her low back. Dysphagia --see video notes. Patient is refusing PEG tube. Plan family meeting tomorrow at [id number] BARCENAS Aug 03, 2018 18:03
[2018-08-03 19:00] VITALS: BP 126/79
[2018-08-03] MEDS: ATORVASTATIN CALCIUM 40 MG TABLET. PO SCH (19:55)
[2018-08-03] MEDS: LACTOBACILLUS RHAMNOSUS GG 1 CAPSULE. PO SCH (19:55)
[2018-08-03] MEDS: LORazepam 0.5 MG TABLET PO SCH (20:16)
[2018-08-03 23:00] VITALS: BP 143/74
--- NOTE | 2018-08-04 00:21 | PN ---
DATE: 08/03/2018 SUBJECTIVE: The patient is resting slightly propped up in bed, in no apparent distress. She continued to be somewhat confused. However, she apparently failed her video swallowing evaluation yesterday and she was kept n.p.o. and started on procalamine. I have discussed the options available for her with her daughter, including being aggressive and start putting a feeding tube and/or if the patient does not want any artificial means to prolong her life, to consider palliative and hospice care. Obviously, we will honor whatever the patient wants to do together with her daughter. PHYSICAL EXAMINATION: GENERAL: When I examined her this morning, she looked pale, but not jaundiced or cyanosed from thyromegaly. No jugular venous distention. No lower limb edema. VITAL SIGNS: Her heart rate was 78, blood pressure was 163/91, temperature was 98.6, respiratory rate was 18 and oxygen saturation was 93% on room air. HEENT: Examination of the head, eyes, ears, nose and throat showed normocephalic, atraumatic. NECK: Supple. HEART: Showed normal first and second heart sounds. No gallop, rub or murmur. CHEST: Clear to auscultation. No crepitation or rhonchi. ABDOMEN: Distended, soft and nontender. NEUROLOGIC: She was awake, alert, but confused, very soft spoken and difficult sometimes to understand, but all her cranial nerves seemed to be grossly intact. She moved her right upper extremity to much great extent than left upper extremity. She is mostly bed bound. Her intake over the last 24 hours was 1920. No output was recorded. LABORATORY DATA: Her lab work this morning showed a serum sodium 135, potassium 3.7, chloride 102, bicarbonate 24, anion gap of 9, BUN 14, creatinine 1.1, estimated GFR was 53 mL per minute, her glucose was 98 and calcium was 8.4. White cell count was 5800, hemoglobin was 12, hematocrit 36, MCV 93 and platelet count of 157,000. ASSESSMENT AND PLAN: 1. Mpyrk-ti-pkjzwjx kidney injury, improving. Her creatinine is down from 1.9 to 1. 2. Urinary tract infection, for which she is on Levaquin, based on the culture results at [facility]. Unfortunately, I do not have it with me here. 3. Severe protein-calorie malnutrition. Serum albumin is only 2.3 grams per liter. 4. Severe anorexia and poor oral intake. The patient has failed her video swallowing evaluation. She is now n.p.o., on IV procalamine. 5. She has maceration of the skin on her low back. She is now on low air loss mattress. Unfortunately, the patient has failed her video swallowing evaluation. I had a lengthy discussion with her daughter regarding the goal of therapy, whether she wants to be aggressive and therefore, she needs to have a feeding tube and if the patient refused that, the only option available is to go on hospice and palliative care. CINTIA VILCHIS MD DR: GERALDINE/greg JOB#: [id number] / [id number]
[2018-08-04 03:00] VITALS: BP 149/84
[2018-08-04 06:00] LABS: CALCIUM 8.5 mg/dL (8.5-10.1); CREATININE 0.9 mg/dL (0.6-1.0); GFR 59.5; POTASSIUM 3.9 mmol/L (3.5-5.1)
[2018-08-04 07:00] VITALS: BP 150/87
[2018-08-04] MEDS: LUBIPROSTONE 8 MCG CAPSULE PO SCH ×2 (08:00→17:00)
[2018-08-04] MEDS: LACTOBACILLUS RHAMNOSUS GG 1 CAPSULE. PO SCH (09:00)
[2018-08-04] MEDS: ASPIRIN ENTERIC COATED 81 MG TABLET.DR. PO SCH (09:00)
[2018-08-04] MEDS: CITALOPRAM 20 MG TABLET. PO SCH (09:00)
[2018-08-04] MEDS: METHOCARBAMOL 500 MG TABLET PO SCH (09:00)
[2018-08-04] MEDS: SENNOSIDES/DOCUSATE 8.6/50MG TABLET. PO SCH (09:00)
[2018-08-04] MEDS: OMEGA-3 FATTY ACIDS/FISH OIL 1,000 MG CAPSULE. PO SCH (09:00)
[2018-08-04] MEDS: NYSTATIN 100,000 UNITS/ML 5 ML ORAL.SUSP. SWSW SCH ×3 (09:41→17:40)
[2018-08-04] MEDS: DICLOFENAC SODIUM 1% TOPICAL GEL 100GM TUBE. TP SCH (09:42)
[2018-08-04] MEDS: NYSTATIN 100,000 UNIT/GM TOPICAL CREAM 15GM TUBE. TP SCH (09:43)
--- NOTE | 2018-08-04 10:15 | NUR ---
Patient's daughter Елена at nurses's station, checked on status of mom patient with both this nurse and Dr. Guadarrama. Dr. Guadarrama wrote two prescriptions for comfort measures if palliative care is decided as result of upcoming meeting to follow.
[2018-08-04] MEDS: AMINO AC 3%/ELECTROLYTE/GLYCER 1,000 ML IV SCH (10:52)
--- NOTE | 2018-08-04 10:53 | NUR ---
NEW BOTTLE OF PROCALAMINE STARTED NOW SINCE OTHER BOTTLE STILL REMAINED.
[2018-08-04 11:00] VITALS: BP 147/77
--- NOTE | 2018-08-04 11:42 | NUR ---
SW following. Discussed with RN. Gisselle Wright advised SW family had decided on [facility]. SW phoned and faxed referral to [facility] (ph: [phone], fax: [phone]). Pt's dtr, Karley requesting SW try [facility] and [facility] for bed availability. SW did so and both facilities are full. SW awaiting time [facility] will be out to do a bedside assessment of pt. RN notified. SW will continue to follow.
--- NOTE | 2018-08-04 11:54 | NUR ---
MERY following. Karley Castellanos requested SW to fax referral to [facility] in [place], [place] ([phone], fax: [phone]). SW contacted [facility], they do have a bed but are not sure if they can take Medicaid pending. SW will await call back.
--- NOTE | 2018-08-04 13:31 | PDOC2 ---
PALLIATIVE CARE Palliative Care Note Palliative Care Patient alert. Received permission to speak with daughter Linda and her . 6 children--all aware of her illness Reviewed Medical condition 1. Wrbhm-hj-edbfrmk kidney injury, improving. 2. Urinary tract infection, f 3. Severe protein-calorie malnutrition. 4. Severe anorexia and poor oral intake. The patient has failed her video swallowing evaluation. 5. maceration of the skin on her low back. Per daughter patient does not want feeding tube. Discussed risks and benefits. Daughter would like to follow her mother's wishes. Discussed role of Hospice. Family has [facility]. Discussed risk and benefits of pleasure feedings. Will keep NPO for now. Informed of importance of keeping her mouth clean and moist. Pooja: important part of her life. Work : Respiratory therapist. Ruby is working with family on discharge plan. Code Status: DNR/DNI. Outside the Hospital form completed. Plan: Discharge to Skilled Nursing with [facility]. DNR/DNI MAGDA CRAWFORD Aug 04, 2018 13:31
--- NOTE | 2018-08-04 13:43 | NUR ---
Patient's female catheter continued to dislodge; therefore, patient changed to regular check and change protocol for incontinence.
--- NOTE | 2018-08-04 14:31 | SNU/HH DC ---
DISCHARGE ORDERS DISCHARGE INFORMATION: CONDITION ON DISCHARGE: Guarded CODE STATUS: Code Status: DNR/DNI CUSTODIAL: SNF STAY <30 DAYS: No HOSPICE: HOSPICE EVAL & TREAT: Yes POST DISCHARGE ORDERS: ACTIVITY ORDERS: Activity as tolerated WEIGHT BEARING STATUS: Full weight bearing BATHING ORDERS: No Tub Bath until see WOUND/INCISION CARE: Ice to area for comfort, Keep wound/cast CDI, Keep wound elevated CHECKS AFTER DISCHARGE: CHECKS AFTER DISCHARGE: Check blood press - daily, Weigh Yourself Daily DISCHARGE MEDICATIONS: Home Meds Discontinued Reported Medications Tramadol Hcl (TRAMADOL HCL) 50 Mg Tablet, 100 MG PO PRN Q6HRS PRN for PAIN, TAB 0 Refills 07/30/18 Tramadol Hcl (TRAMADOL HCL) 50 Mg Tablet, 50 MG PO BID PRN for PAIN, TAB 0 Refills 07/30/18 Levofloxacin (LEVAQUIN) 750 Mg Tablet, 1 TAB PO QODAY for infection., #5 TAB 07/30/18 Zolpidem Tartrate (ZOLPIDEM TARTRATE) 5 Mg Tablet, 5 MG PO PRN QHS PRN for INSOMNIA, TAB 0 Refills 07/30/18 Sennosides/Docusate Sodium (SENOKOT-S TABLET) 1 Each Tablet, 1 TAB PO BID for constipation, #30 TAB 07/30/18 [place]-3 Fatty Acids/Fish Oil (FISH OIL 1,000 MG CAPSULE) 1 Each Capsule, 1 EACH PO BID for supplement., CAP 07/30/18 Methocarbamol (ROBAXIN) 500 Mg Tablet, 500 MG PO BID for muscle relaxant, TAB 07/30/18 Lorazepam (LORAZEPAM) 0.5 Mg Tablet, 0.5 MG PO HS for anxiety, TAB 07/30/18 Aspirin (ASPIR-LOW) 81 Mg Tablet.dr, 1 TAB PO DAILY for circulation., #30 TAB 3 Refills 07/30/18 Acetaminophen (TYLENOL) 325 Mg Tablet, 1-2 TAB PO QID for pain, #60 TAB 2 Refills 07/30/18 Lubiprostone (AMITIZA) 8 Mcg Capsule, 8 MCG PO BID 02/09/14 [place]-3 Acid Ethyl Esters (LOVAZA) 1 Gm Capsule, 1 GM PO BID, CAP 02/09/14 Citalopram Hydrobromide (CELEXA) 20 Mg Tablet, 20 MG PO 08/03/13 Atorvastatin Calcium (LIPITOR) 10 Mg Tablet, 40 MG PO 08/03/13 CINTIA VILCHIS MD Aug 04, 2018 14:30
--- NOTE | 2018-08-04 14:37 | PDOC2 ---
PALLIATIVE CARE Palliative Care Note Palliative Care Daughter Migdalia requested pudding for patient. Reviewed risk of aspiration and patient becoming distressed prior to discharge. Migdalia acknowledges understanding. Will give small ice chip and see how she tolerates this. When ice brought to patient she refused. MAGDA CRAWFORD Aug 04, 2018 14:37
[2018-08-04 15:00] VITALS: BP 133/84
--- NOTE | 2018-08-04 15:49 | NUR ---
SW following. [facility] has accepted pt onto services. Pt will transport to [facility] via [facility] at 1730. Discharge paperwork faxed to [facility] and [facility]. Pt's daughter, Karley signed pt choice and rights letter, placed on chart. RN notified. No further SW needs.
--- NOTE | 2018-08-04 17:54 | DS ---
DATE OF DISCHARGE: 08/04/2018 HOSPITAL COURSE: The patient is an 83-year-old female patient who was residing at [facility] and was noted to have a urinary tract infection as well as acute on chronic kidney injury. At that time, she did have also oropharyngeal candidiasis, treated with nystatin. However, the patient has severe anorexia and was not eating or drinking and therefore, the patient was transferred to [facility] where we started her on IV fluid, IV Levaquin to treat the urinary tract infection based on urine culture taken at [facility]. She was noted by the nursing staff to choke with all consistencies. So we did bedside swallowing evaluation, which showed that she has dysphagia, this was confirmed by her video swallowing evaluation, and we had a lengthy discussion with the patient and her family, and the patient is refusing, does not want any feeding tube, so we have discussed the option of palliative and hospice care, and the family and the patient agreed to go on hospice. She was discharged to [facility] to continue on hospice with [facility]. PHYSICAL EXAMINATION: GENERAL: When I saw her today, she was resting slightly propped up in bed, in no apparent respiratory distress. She was pale, but no jaundice, cyanosis, or thyromegaly. No jugular venous distension. No lower limb edema. VITAL SIGNS: Her heart rate was 68, blood pressure 147/77, temperature was 98.2, respiratory rate was 17 and oxygen saturation was 98% on room air. HEAD, EYES, EARS, NOSE AND THROAT: Showed normocephalic, atraumatic. NECK: Supple. HEART: Showed normal first and second heart sounds with no gallop, rub or murmur. CHEST: Clear to auscultation. No crepitation or rhonchi. ABDOMEN: Distended, soft, nontender. No guarding or rigidity. No organomegaly. All hernial orifice intact. Bowel sounds normal. NEUROLOGIC: She was very confused and demented, but without any obvious lateralizing sign. All her cranial nerves are intact. She moves upper extremities to much good extent than lower extremities. She is mostly bedbound, chair bound. LABORATORY DATA: As of yesterday showed a white cell count 5800, hemoglobin 12, hematocrit 36, MCV 93 and platelet count 257,000. Her chemistry showed her serum sodium of 132, potassium 3.9, chloride 100, bicarbonate 23, anion gap of 9, BUN 19, creatinine 0.9, estimated GFR was 59 mL per minute. Her glucose was 100 and calcium was 8.5. As she was choking on all her medication and food, I discontinued all her medications. We started her on Roxanol and Ativan Intensol and was transferred to [facility] in [place] for end of life care. CINTIA VILCHIS MD DR: GERALDINE/greg JOB#: [id number] / [id number]
--- NOTE | 2018-08-04 18:00 | NUR ---
Patient discharged to [facility] with belongings accompanied by family, via EMS to be followed by [facility].
== END 2018-08-04 18:00 | disposition hospice, inpatient (51) | DRG 682 ==
LOC: 5 SOUTH 17:45
PROVIDERS: ADMIT Internal Medicine; ATTEND Internal Medicine
DX: N17.9 Acute kidney failure, unspecified (principal); E43 Unspecified severe protein-calorie malnutrition; N39.0 Urinary tract infection, site not specified; B37.0 Candidal stomatitis; B37.89 Other sites of candidiasis; N18.9 Chronic kidney disease, unspecified; I12.9 Hypertensive chronic kidney disease with stage 1 through stage 4 chronic kidney disease, or unspecified chronic kidney disease; E78.5 Hyperlipidemia, unspecified; G24.01 Drug induced subacute dyskinesia; I25.10 Atherosclerotic heart disease of native coronary artery without angina pectoris; I95.1 Orthostatic hypotension; I25.2 Old myocardial infarction; K21.9 Gastro-esophageal reflux disease without esophagitis; M17.0 Bilateral primary osteoarthritis of knee; F32.9 Major depressive disorder, single episode, unspecified; R13.10 Dysphagia, unspecified; Z66 Do not resuscitate; Z81.8 Family history of other mental and behavioral disorders; Z82.49 Family history of ischemic heart disease and other diseases of the circulatory system; Z86.73 Personal history of transient ischemic attack (TIA), and cerebral infarction without residual deficits; Z90.710 Acquired absence of both cervix and uterus; Z95.0 Presence of cardiac pacemaker; Z95.5 Presence of coronary angioplasty implant and graft; Z87.440 Personal history of urinary (tract) infections; Z68.23 Body mass index [BMI] 23.0-23.9, adult; Z88.8 Allergy status to other drugs, medicaments and biological substances; Z90.722 Acquired absence of ovaries, bilateral
CPT/HCPCS: 36415; 71045; 73030; 74230; 80048; 80053; 85025; 87641; J1956; J2405; J7030; 92610; 92611; 97110; 97530